=== PATIENT | male | born 1955 | race Caucasian/White ===

== ENCOUNTER 2021-04-30 19:50 | Inpatient (IN) | payer MEDICARE, SELFPAY ==
[2021-04-30] VITALS (20 sets, daily range): BP systolic 149–179; BP diastolic 74–106; PULSE 73–106; RESP 16–24; TEMP 36.6; O2SAT 92–100
--- NOTE | ~2021-04-30 | XR_ITS ---
EXAMINATION: XR chest 2V DATE: 04/30/2021 21:32 INDICATION: COPD and wheezing TECHNIQUE: AP and lateral views of the chest are obtained. COMPARISON: 11/05/2013 FINDINGS: Cardiomegaly is noted. A mild diffuse interstitial pattern is present. There appear to be s mall pleural effusions. No pneumothorax is identified. There has been interval insertion of a dual le ad pacemaker into the left chest wall which ends with its expected positions. IMPRESSION: 1. Cardiomegaly. 2. Diffuse lung disease, consistent with pulmonary edema and/or pneumonia. Reviewed, dictated and finalized at location A.
--- NOTE | ~2021-04-30 | XR_ITS ---
XR chest 1V portable DATE: 05/03/2021 05:42 INDICATION: Shortness of breath TECHNIQUE: Portable AP chest on 04/2021 at 0528 hours COMPARISON: 04/30/2021 portable AP chest at 2127 hours FINDINGS: Left-sided dual-lead pacemaker device is one lead overlying right atrium, the other lead be yond the lower margin of the radiograph, presumably in the right ventricle. Cardiomegaly. There is pulmonary vascular congestion and redistribution, prominence of the minor fissure and mild c entral and lower lung infiltrates, likely due to subpleural and pulmonary interstitial edema. Small p leural effusions are not excluded (costophrenic angles partially obscured). No pneumothorax. IMPRESSION: Congestive heart failure and probable subpleural and pulmonary interstitial edema. Pneumo monica is not excluded Reviewed, dictated and finalized at location A. IMPRESSION: Congestive heart failure and probable subpleural and pulmonary inte rstitial edema. Pneumonia is not excluded
--- NOTE | 2021-04-30 21:12 | ECG_ITS ---
Measurements Intervals [place] Rate: 90 P: MO: 0 QRS: -66 QRSD: 120 T: 68 QT: 398 QTc: 488 Interpretive Statements ATRIAL FIBRILLATION INTRAVENTRICULAR CONDUCTION DELAY LOW VOLTAGE- DIFFUSE LEADS ANTERIOR INFARCT, AGE INDETERMINATE BASELINE ARTIFACT- I, II, III, AVR, AVL, AVF, V3-V4 ABNORMAL ECG Electronically Signed On 05-01-2021 8:32:37 CDT by Aditya Milton D.O.
--- NOTE | 2021-04-30 21:19 | PC.NURSE ---
Patient taken to Xray.
--- NOTE | 2021-04-30 21:43 | ED.SOB ---
HPI - SOB/Dyspnea General Chief Complaint: Shortness of Breath/Dyspnea Stated Complaint: confusion Time Seen by Provider: 04/30/21 20:33 Source: patient Mode of arrival: EMS Limitations: clinical condition History of Present Illness HPI Narrative: 65-year-old male Patient is drowsy/lethargic and a poor historian Patient states that he fell asleep at the [employer] Unclear if he was actually in the store or if he was in the parking lot but either way somebody called paramedics and they brought him to the hospital He was noted to have poor O2 sats in the field Here he really does not have any particular complaints but does appear very drowsy Related Data Allergies Allergy/AdvReac Type Severity Reaction Status Date / Time No Known Allergies Allergy Unverified 11/05/13 12:33 Review of Systems Review of Systems: ROS unobtainable: Yes unobtainable due to mental status Constitutional: Constitutional: Denies fever(s) Gastrointestinal: Gastrointestinal: Denies vomiting PMFSH Comments Most is unobtainable due to lethargy Exam Const: General: cooperative and confusion Nutritional Appearance: obese Other: Lethargic, rousable HENMT: Head: normal to inspection, normocephalic, atraumatic, no contusions, no hematomas and no lacerations Ears: external ears normal Eyes: Conjunctivae: conjunctivae normal EOM: EOMs intact bilaterally Neck: Neck: normal visual inspection, supple and no JVD Resp: Effort & Inspection: normal respiratory effort Auscultation: no rales, no rhonchi, wheezes throughout and other (BS =) Cardio: Rhythm: abnormal rhythm irregularly irregular Heart sounds: no murmurs GI: GI Palp: Yes Soft to palpation, No Guarding due to palpation present (GI) and No Rebound tenderness present Skin: General skin exam: normal color and no rashes or lesions noted Neuro: General: moves all extremities and no focal motor deficits (Poor cooperation, grossly normal x4) Extrem: General: normal to inspection Other: Bilateral 1+ edema Course Course Emergency Course: Sparse data as the patient cannot provide much history and the only thing in the chart is a 6-year-old visit for reactive airways He has acute hypercapnic ventilatory respiratory failure based upon his ABG and was placed on BiPAP for this as well as receiving bronchodilators, empiric antibiotics, and a dose of Lasix due to his elevated BNP Seemed a little more alert when rechecked just before admission Discussed with hospitalist for admission and will be going to IMU Vital Signs Vital signs: Vital Signs Temperature 36.6 C 04/30/21 20:13 Pulse Rate 83 04/30/21 20:13 Respiratory Rate 20 04/30/21 20:13 Blood Pressure 149/74 H 04/30/21 20:13 Pulse Oximetry 95 04/30/21 20:13 Temperature 36.6 C 04/30/21 20:13 Pulse Rate 90 04/30/21 23:45 Respiratory Rate 20 04/30/21 23:45 Blood Pressure 160/106 H 04/30/21 23:01 Pulse Oximetry 98 04/30/21 23:45 MDM - SOB/Dyspnea Lab Data Result diagrams: 04/30/21 21:38 04/30/21 21:38 Labs: Lab Results 04/30/21 04/30/21 04/30/21 Range/Units 21:38 21:38 21:38 WBC 7.7 (4.5-10.0) K/mm3 RBC 4.14 L (4.6-6.20) M/mm3 Hgb 12.9 L (14.0-18.0) g/dL Hct 42.3 (42.0-52.0) % MCV 102.2 H (80-100) fl MCH 31.2 (26-34) pg MCHC 30.5 L (32-36) g/dl RDW 15.4 H (11.5-14.5) % Plt Count 209 (150-375) k/mm3 MPV 10.9 H (7.4-10.4) fl Immature Gran % (Auto) 0.8 H (0-0.5) % Neut % (Auto) 66.0 (45.5-73.1) % Lymph % (Auto) 21.4 (18.3-44.2) % Island % (Auto) 9.4 H (2.6-8.5) % Eos % (Auto) 1.7 (0-4.4) % Baso % (Auto) 0.7 (0.2-1.2) % Lymph # (Auto) 1.64 (0.9-3.2) K/mm3 Island # (Auto) 0.7 H (0.1-0.6) K/mm3 Eos # (Auto) 0.1 (0-0.3) K/mm3 Baso # (Auto) 0.1 (0.0-0.1) K/mm3 Abs Immat Gran (auto) 0.06 H (0.00-0.031) K/mm3 Absolute Neuts (auto) 5.1 (1.3-6.7) K/mm3 Absolu
[2021-04-30 21:46] LABS: Alveolar/Arterial O2 Gradient 59.4 mmHg; Fractional Inspired Oxygen 32 %; HCO3 ABG 32.2 mEq/l (22.0-26.0); Oxygen Content ABG 17.1 %vol (16.0-22.0); Oxygen Saturation ABG 91.5 % (95.0-100.0); Oxyhemoglobin 88.4 % THb (90.0-100.0); PO2 ABG 74.9 mmHg (80.0-100.0); PO2 FiO2 Ratio Arterial Blood 2.34 %; Total Hemoglobin 13.7 g/dL (12.0-18.0)
[2021-04-30 21:47] LABS: PCO2 ABG 80.2 mmHg (35.0-45.0); pH ABG 7.221 (7.350-7.450)
--- NOTE | 2021-04-30 21:47 | PC.NURSE ---
Patient given urinal to provide urine specimen.
[2021-04-30 21:48] LABS: Device NON-REBREATHER MASK; Modified Allen's Test Pass; Site Drawn LEFT RADIAL
[2021-04-30] MEDS: ALBUTEROL SULFATE NEB 2.5 MG/0.5 ML INH 5 MG INHALATION (21:49)
[2021-04-30] MEDS: IPRATROPIUM BR 0.02% INH SOLN 0.5 MG/2.5 ML VIAL INHALATION (21:50)
[2021-04-30 21:53] LABS: Basophils Absolute Auto 0.1 K/mm3 (0.0-0.1); Basophils Percent Auto 0.7 % (0.2-1.2); Eosinophils Absolute Auto 0.1 K/mm3 (0-0.3); Eosinophils Percent Auto 1.7 % (0-4.4); Hematocrit 42.3 % (42.0-52.0); Hemoglobin 12.9 g/dL (14.0-18.0); Immature Granulocyte Absolute 0.06 K/mm3 (0.00-0.031); Immature Granulocyte Percent A 0.8 % (0-0.5); Lymphocytes Absolute Auto 1.64 K/mm3 (0.9-3.2); Lymphocytes Percent Auto 21.4 % (18.3-44.2); Mean Corpuscular HGB Conc 30.5 g/dl (32-36); Mean Corpuscular Hemoglobin 31.2 pg (26-34); Mean Corpuscular Volume 102.2 fl (80-100); Mean Platelet Volume 10.9 fl (7.4-10.4); Monocytes Absolute Auto 0.7 K/mm3 (0.1-0.6); Monocytes Percent Auto 9.4 % (2.6-8.5); Neutrophils Absolute Auto 5.1 K/mm3 (1.3-6.7); Platelet Count Result 209 k/mm3 (150-375); Red Blood Count 4.14 M/mm3 (4.6-6.20); Red Cell Distribution Width 15.4 % (11.5-14.5); White Blood Count 7.7 K/mm3 (4.5-10.0)
[2021-04-30 22:06] LABS: Alanine Aminotransferase 19 U/L (4-50); Albumin Level 4.3 g/dL (3.5-5.1); Alkaline Phosphatase 79 U/L (38-126); Anion Gap 6 mmol/L (8-16); Aspartate Amino Transferase 23 U/L (17-59); Bilirubin,Total 0.7 mg/dL (0.2-1.3); Blood Urea Nitrogen 12 mg/dL (9-20); Calcium 8.6 mg/dL (8.4-10.2); Carbon Dioxide 34 mmol/L (22-30); Chloride 104 mmol/L (98-107); Estimated CRCL calculation 101 ml/min; Estimated Glomerular Filt Rate > 60; Glucose 180 mg/dL (65-110); Potassium 4.2 mmol/L (3.4-5.0); Sodium 144 mmol/L (137-145)
[2021-04-30 22:18] LABS: NT Pro B Type Natriuretic Pept 4690 pg/mL (5-100); Troponin I 0.021 ng/mL (0.000-0.034)
[2021-04-30 23:45] LABS: Free T4 Free Thyroxine Reflex 1.74 ng/dL (0.78-2.19)
--- NOTE | 2021-04-30 23:49 | PM.IMHP ---
H&P: HPI History of Present Illness Date/Time: 04/30/21 23:49 Chief Complaint: ALTERED MENTAL STATUS Narrative: This is a 65-year-old male who was brought to the emergency room via EMS his unable to give much history as his very drowsy currently on BiPAP apparently he was wondering outside at [employer] store when someone call paramedics on the field patient had an oxygen saturation in the 80%. Here upon arrival to emergency room patient was very drowsy preliminary workup was significant for a blood gas with a pH of 7.2 and a pCO2 of 80 a BNP above 4,000, chest x-ray was significant for diffuse infiltrates and pleural effusion there is also a pacemaker insitu. Patient was placed on BiPAP at the time of my visit I was unable to get any history which has been a obtain mainly upon review of medical records and emergency room doctor and paramedics records. Review of Systems Review of Systems: ROS unobtainable: Yes unobtainable due to medical condition and unobtainable due to mental status (Obtunded on BiPAP) Meds Home Medications and Allergies Allergies Allergy/AdvReac Type Severity Reaction Status Date / Time No Known Allergies Allergy Unverified 11/05/13 12:33 Vital Signs Vital Signs - 24 hr 04/30/21 20:13 04/30/21 20:36 04/30/21 20:39 Temperature 97.9 F Pulse Rate 83 91 88 Respiratory Rate 20 Blood Pressure 149/74 H 154/95 H Pulse Oximetry 95 97 04/30/21 20:41 04/30/21 20:45 04/30/21 21:00 Temperature Pulse Rate 95 84 86 Respiratory Rate 20 23 H 21 H Blood Pressure 154/95 H Pulse Oximetry 95 98 94 04/30/21 21:15 04/30/21 21:31 04/30/21 21:45 Temperature Pulse Rate 85 91 87 Respiratory Rate Blood Pressure Pulse Oximetry 98 95 95 04/30/21 22:00 04/30/21 22:01 04/30/21 22:15 Temperature Pulse Rate 73 91 99 Respiratory Rate 23 H 22 H Blood Pressure 179/89 H Pulse Oximetry 93 93 94 04/30/21 22:38 04/30/21 22:45 04/30/21 22:53 Temperature Pulse Rate 87 85 Respiratory Rate 19 24 H 16 Blood Pressure Pulse Oximetry 92 04/30/21 23:00 04/30/21 23:01 04/30/21 23:18 Temperature Pulse Rate 93 106 H 90 Respiratory Rate 23 H Blood Pressure 160/106 H Pulse Oximetry 100 04/30/21 23:30 04/30/21 23:45 Temperature Pulse Rate 105 H 90 Respiratory Rate 24 H 20 Blood Pressure Pulse Oximetry 98 98 Exam Narrative: Patient is in [facility] on Const: General: comfortable, no acute distress, well developed, ill appearing and patient obtunded Nutritional Appearance: overweight Orientation/consciousness: oriented to person Limitations: altered mental status HENMT: Head: normal to inspection, normocephalic and atraumatic Ears: hearing grossly normal bilaterally General nose exam: Normal external nose present Face and sinus: normal facial exam Eyes: General: appearance normal, both eyes and all related structures Alignment and Position: alignment normal Sclera: sclerae normal Pupils: Equal, round and reactive pupils present EOM: EOMs intact bilaterally Neck: Neck: normal visual inspection, full ROM, no lymphadenopathy, supple and no JVD Thyroid: thyroid normal Lymphatic: no lymphadenopathy noted Resp: Effort & Inspection: normal respiratory effort and other (On BiPAP) Auscultation: crackles, rales and diminished lung sounds Cardio: Jugular venous distension: no JVD Rate: regular rate Rhythm: regular rhythm Heart sounds: S1 normal heart sound present and S2 normal heart sound present GI: Inspection: Pannus present and obesity GI Palp: Yes Soft to palpation, No Tenderness to palpation present (GI), No Guarding due to palpation present (GI) and Yes No hepatosplenomegaly present : General: Yes deferred Skin: General skin exam: excoriation (Abdomen) Rashes: no rashes Wounds: no wounds Neuro: General: oriented to person and CN's II-XI intact bilaterally Cranial nerves: Yes CN's II-XII intact bilaterally and Yes Equal, round and reactive
[2021-05-01] VITALS (29 sets, daily range): BP systolic 111–169; BP diastolic 64–115; PULSE 69–114; RESP 17–29; TEMP 36.4–36.8; O2SAT 90–100; BMI 48.3; BMI 48.0
--- NOTE | 2021-05-01 | ECHO_ITS ---
Patient Info Name: Elder Garcia Age: 65 years : 1955 Gender: Male Ht: 70 in Wt: 311 lbs BSA: 2.71 m2 HR: 76 bpm BP: 150 / 102 mmHg Technical Quality: Poor Exam Date: 05/01/2021 10:11 AM Exam Location: [facility] Patient Status: Inpatient Admit Date: 05/01/2021 Staff Ordering Physician: Luis Jackson MD Book Illustrator: CHARLIE Attending Provider: Luis Jackson MD Referring Physician: Manuel MARAVILLA; Exam Type: CA echo dop color flow w con Study Info Indications - chf Complete two-dimensional, color flow and Doppler transthoracic echocardiogram is performed with contrast to opacify the left ventricle and to improve the deliniation of the left ventricle endocardial borders. Contrast/Agitated Saline Amount: 4.00 ml Reason for Poor Study: patient body habitus Summary 1. Technically suboptimal study due to poor sonographic images. 2. Definity contrast administered improved wall motion interpretation. 3. Left ventricular chamber dimension is severely enlarged. 4. Left ventricular systolic function is severely reduced, estimated at 20-25%. 5. The left ventricular diastolic function is indeterminate. 6. Linear artifact in right ventricle suggestive of catheter(s), pacemaker lead(s), or ICD lead(s). 7. Left atrial chamber dimension is moderately enlarged. 8. Right atrial chamber dimension is moderately enlarged. 9. Linear artifact in the right atrium suggestive of catheter(s), pacemaker lead(s), or ICD lead(s). 10. There is mild to moderate tricuspid valve regurgitation. 11. Mild pulmonary hypertension, estimated pulmonary arterial systolic pressure is 40 mmHg. 12. Normal inferior vena cava with <50% collapse upon inspiration consistent with elevated right atrial pressure, 10 mmHg. 13. There is trivial pericardial effusion. Left Ventricle Technically suboptimal study due to poor sonographic images. Tissue doppler E/e' is not measured. Definity contrast administered improved wall motion interpretation. Left ventricular chamber dimension is severely enlarged. Left ventricular systolic function is severely reduced, estimated at 20-25%. The left ventricular diastolic function is indeterminate. Right Ventricle Linear artifact in right ventricle suggestive of catheter(s), pacemaker lead(s), or ICD lead(s). Right ventricular chamber dimension is not well visualized. Left Atria Left atrial chamber dimension is moderately enlarged. Right Atria Linear artifact in the right atrium suggestive of catheter(s), pacemaker lead(s), or ICD lead(s). Right atrial chamber dimension is moderately enlarged. Aortic Valve The aortic valve is trileaflet. There is no aortic valve stenosis. There is no aortic valve regurgitation. Pulmonic Valve There is no pulmonic regurgitation. Mitral Valve There is no mitral valve stenosis. There is no mitral valve regurgitation. Tricuspid Valve There is mild to moderate tricuspid valve regurgitation. Mild pulmonary hypertension, estimated pulmonary arterial systolic pressure is 40 mmHg. Pericardium/Pleural There is trivial pericardial effusion. Inferior Vena Cava Normal inferior vena cava with <50% collapse upon inspiration consistent with elevated right atrial pressure, 10 mmHg. Aorta The aortic root size at the sinus of Valsalva is normal. Left Ventricular Outflow Tract Name
[2021-05-01 00:05] LABS: Lactate Dehydrogenase 816 U/L (313-618)
[2021-05-01] MEDS: ALBUTEROL SULFATE NEB 2.5 MG/0.5 ML INH 5 MG INHALATION ×3 (00:24→08:50)
[2021-05-01 00:41] LABS: Total Triiodothyronine (T3) 0.97 NG/ML (0.97-1.69)
[2021-05-01] MEDS: FUROSEMIDE INJ 40 MG/4 ML VIAL IV PUSH ×2 (00:48→21:14)
[2021-05-01] MEDS: IPRATROPIUM BR 0.02% INH SOLN 0.5 MG/2.5 ML VIAL INHALATION ×4 (02:30→19:47)
[2021-05-01] MEDS: LORazepam INJ (*CRX) 2 MG/ML VIAL (04:47)
[2021-05-01] MEDS: LACTATED RINGERS 1,000 ML 50 ML IV CONT (04:50)
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
--- NOTE | 2021-05-01 05:31 | PC.NURSE ---
unable to ask admit questions due to being given ativan for aggressive and restless behavior. Under care of ER nurse.
[2021-05-01 12:28] LABS: Alveolar/Arterial O2 Gradient 129.8 mmHg; Base Excess ABG 2.1 mEq/l (+/-2.0); Carboxyhemoglobin 1.4 % THb (0-2.0); Fractional Inspired Oxygen 40 %; HCO3 ABG 30.8 mEq/l (22.0-26.0); Methemoglobin ABG 0.3 %THb (0-1.5); Oxygen Content ABG 17.6 %vol (16.0-22.0); Oxygen Saturation ABG 93.3 % (95.0-100.0); Oxyhemoglobin 92.7 % THb (90.0-100.0); PO2 ABG 77.2 mmHg (80.0-100.0); PO2 FiO2 Ratio Arterial Blood 1.93 %; Reduced Hemoglobin 5.6 %THb (0-5.0); Total Hemoglobin 13.5 g/dL (12.0-18.0)
[2021-05-01 12:31] LABS: pH ABG 7.274 (7.350-7.450)
[2021-05-01 12:32] LABS: Device NON-INVASIVE VENT; Site Drawn LEFT BRACHIAL
[2021-05-01 12:33] LABS: Non-Invasive Expiratory Pressure 6 CMH2O; Non-Invasive Inspiratory Pressure 18 CMH2O; Non-Invasive Vent Rate 16 /MIN
--- NOTE | 2021-05-01 13:00 | PM.IMPN ---
Progress Note: A&P Assessment and Plan (1) Acute hypercapnic respiratory failure: Code(s): J96.02 - Acute respiratory failure with hypercapnia Status: Acute Assessment and Plan: He was on BiPAP with IPAP of 16/EPAP of 6/respiratory rate of 16 and 40% FiO2. A follow-up blood gas was performed which showed improvement in his pCO2 which is down to 60s with his pH remained 7.27. I will switch his BiPAP to AVAPS settings and repeat a blood gas in few hours for now. He was sleepy at the time of my evaluation. It appears that he was very restless throughout the night and was given 1 mg of Ativan today in the morning in the emergency department. If he continued to be very lethargic/obtunded or blood gas does not improve appropriately then he would need to be transferred to ICU for intubation and mechanical ventilation. Continue to keep him NPO while he is on BiPAP. Will continue him on bronchodilator with albuterol/Atrovent nebulization. (2) Infiltrate of lung present on chest x-ray: Code(s): R91.8 - Other nonspecific abnormal finding of lung field Status: Acute Assessment and Plan: Patient has been started on azithromycin and ceftriaxone Follow-up blood culture. Send sputum culture if he is able to produce any. Check procalcitonin level. COVID test is pending. (3) Afib: Code(s): I48.91 - Unspecified atrial fibrillation Status: Acute Assessment and Plan: Continue to monitor (4) Acute congestive heart failure: Code(s): I50.9 - Heart failure, unspecified Status: Acute Assessment and Plan: Echocardiogram has been done in the emergency department with pending read from cardiology service. Start him on Lasix 40 mg IV twice a day. Strict intake output record and daily weight. Continue to monitor renal parameters and electrolytes. (5) Pacemaker: Code(s): Z95.0 - Presence of cardiac pacemaker Status: Acute Assessment and Plan: Presence of pacemaker on chest x-ray (6) Altered mental status: Code(s): R41.82 - Altered mental status, unspecified Status: Acute Assessment and Plan: Likely secondary to hypercarbia. If his mental status does not improve with correction of acute hypercarbic respiratory failure then he may need further workup including a CT of the brain to rule out any acute intracranial pathology. Supportive care (7) COPD exacerbation: Code(s): J44.1 - Chronic obstructive pulmonary disease with (acute) exacerbation Status: Acute Assessment and Plan: I will stop prednisone. I will start him on Solu-Medrol. I will continue him on bronchodilator with the GiorgiooNeisra. Wheezing can be related to fluid overload and will reassess and potentially stop steroids if he does not have any significant wheezing. (8) COVID-19: Code(s): U07.1 - COVID-19 Status: Acute Assessment and Plan: COVID-19 test is pending. Continue precaution until he is ruled out of COVID 19 infection. Subjective Date/time seen: 05/01/21 13:00 Review of Systems Review of Systems: ROS unobtainable: Yes unobtainable due to medical condition and unobtainable due to mental status (Obtunded on BiPAP) Exam Narrative: General sleepy while he was on BiPAP Eyes normal conjunctiva HEENT no discharge Neck supple CVS S1-S2 no murmur Respiratory Bilateral crackles heard few occasional rhonchi and wheezing heard as well. GI soft nontender nondistended JAVA SDET sleepy Extremities edema present Objective Data Vital Signs Vital Signs: Vital Signs - 24 hr 04/30/21 20:13 04/30/21 20:36 04/30/21 20:39 Temperature 36.6 C Pulse Rate 83 91 88 Respiratory Rate 20 Blood Pressure 149/74 H 154/95 H Pulse Oximetry 95 97 04/30/21 20:41 04/30/21 20:45 04/30/21 21:00 Temperature Pulse Rate 95 84 86 Respiratory Rate 20 23 H 21 H Blood Pressure 154/95 H Pulse Oximetry 95 98 94 1
[2021-05-01] MEDS: ALBUTEROL SULFATE NEB 2.5 MG/0.5 ML INH INHALATION ×2 (14:05→19:47)
[2021-05-01 15:47] LABS: Alveolar/Arterial O2 Gradient 68.8 mmHg; Base Excess ABG 4.7 mEq/l (+/-2.0); Carboxyhemoglobin 0.8 % THb (0-2.0); Fractional Inspired Oxygen 30 %; HCO3 ABG 33.1 mEq/l (22.0-26.0); Methemoglobin ABG 0.3 %THb (0-1.5); Oxygen Content ABG 17.4 %vol (16.0-22.0); Oxygen Saturation ABG 90.1 % (95.0-100.0); Oxyhemoglobin 90.7 % THb (90.0-100.0); PO2 ABG 65.1 mmHg (80.0-100.0); PO2 FiO2 Ratio Arterial Blood 2.17 %; Reduced Hemoglobin 8.2 %THb (0-5.0); Total Hemoglobin 13.6 g/dL (12.0-18.0); pH ABG 7.305 (7.350-7.450)
[2021-05-01 15:48] LABS: Modified Allen's Test Unable to perform; Non-Invasive Vent Rate 18 /MIN; PCO2 ABG 68.1 mmHg (35.0-45.0); Site Drawn LEFT RADIAL
[2021-05-01 15:49] LABS: Device NON-INVASIVE VENT; Non-Invasive Expiratory Pressure 10 CMH2O
--- NOTE | 2021-05-01 16:36 | PC.NURSE ---
This patient, Elder Garcia, was admitted to IMU Room 207-01. Patient/family oriented to hospital policies and general routines including ID bracelet, bed and alarms, visiting hours, pain management, procedures, bathroom and other care routines, personal items, smoking policy, room service/diet, and visiting hours. Information on how to activate the Rapid Response Team has been discussed. Patient/Family are encouraged to report perceived risks to care and to ask questions if they do not understand what they are told or what they should do.
[2021-05-01] MEDS: methylPREDNISolone SOD SUCC 125 MG VIAL 60 MG IV PUSH ×2 (16:48→21:14)
[2021-05-01 19:34] LABS: SARS-CoV-2 RNA PCR Negative
[2021-05-01 21:22] LABS: Glucose Point of Care 210 mg/dl (65-105)
[2021-05-01 21:48] LABS: Amphetamine Screen Urine Negative (Negative); Barbiturate Screen Urine Negative (Negative); Benzodiazepines Screen Urine Negative (Negative); Cannabinoid Screen Urine Negative (Negative); Cocaine Screen Urine Negative (Negative); Methadone Screen Urine Negative (Negative); Opiate Screen Urine Negative (Negative); Phencyclidine Screen Urine Negative (Negative)
[2021-05-02] VITALS (28 sets, daily range): BP systolic 130–161; BP diastolic 75–87; PULSE 69–103; RESP 19–27; TEMP 35.8–36.6; O2SAT 90–98
[2021-05-02] MEDS: ALBUTEROL SULFATE NEB 2.5 MG/0.5 ML INH INHALATION ×4 (01:54→19:41)
[2021-05-02] MEDS: IPRATROPIUM BR 0.02% INH SOLN 0.5 MG/2.5 ML VIAL INHALATION ×4 (01:54→19:41)
[2021-05-02] MEDS: methylPREDNISolone SOD SUCC 125 MG VIAL 60 MG IV PUSH (05:19)
[2021-05-02 05:39] LABS: Alveolar/Arterial O2 Gradient 238.7 mmHg; Base Excess ABG 5.7 mEq/l (+/-2.0); Fractional Inspired Oxygen 50 %; HCO3 ABG 31.7 mEq/l (22.0-26.0); Oxygen Content ABG 17.6 %vol (16.0-22.0); Oxygen Saturation ABG 90.5 % (95.0-100.0); Oxyhemoglobin 90.1 % THb (90.0-100.0); PCO2 ABG 51.8 mmHg (35.0-45.0); PO2 ABG 59.5 mmHg (80.0-100.0); PO2 FiO2 Ratio Arterial Blood 1.19 %; Total Hemoglobin 13.9 g/dL (12.0-18.0); pH ABG 7.405 (7.350-7.450)
[2021-05-02 05:40] LABS: Device NON-INVASIVE VENT; Modified Allen's Test Pass; Non-Invasive Vent Rate 18 /MIN; Site Drawn LEFT RADIAL
[2021-05-02 06:40] LABS: Hematocrit 41.8 % (42.0-52.0); Hemoglobin 12.8 g/dL (14.0-18.0); Immature Granulocyte Absolute 0.04 K/mm3 (0.00-0.031); Immature Granulocyte Percent A 0.6 % (0-0.5); Lymphocytes Absolute Auto 0.64 K/mm3 (0.9-3.2); Mean Corpuscular HGB Conc 30.6 g/dl (32-36); Mean Corpuscular Hemoglobin 30.3 pg (26-34); Mean Corpuscular Volume 99.1 fl (80-100); Mean Platelet Volume 11.4 fl (7.4-10.4); Monocytes Absolute Auto 0.2 K/mm3 (0.1-0.6); Monocytes Percent Auto 2.8 % (2.6-8.5); Neutrophils Absolute Auto 5.6 K/mm3 (1.3-6.7); Neutrophils Percent Auto 86.6 % (45.5-73.1); Platelet Count Result 212 k/mm3 (150-375); Red Blood Count 4.22 M/mm3 (4.6-6.20); Red Cell Distribution Width 14.7 % (11.5-14.5); White Blood Count 6.4 K/mm3 (4.5-10.0)
[2021-05-02 06:55] LABS: Anion Gap 5 mmol/L (8-16); Blood Urea Nitrogen 23 mg/dL (9-20); Calcium 8.4 mg/dL (8.4-10.2); Carbon Dioxide 34 mmol/L (22-30); Chloride 101 mmol/L (98-107); Estimated CRCL calculation 105 ml/min; Estimated Glomerular Filt Rate > 60; Glucose 322 mg/dL (65-110); Magnesium 2.2 mg/dL (1.6-2.3); Potassium 4.6 mmol/L (3.4-5.0); Sodium 140 mmol/L (137-145)
[2021-05-02] MEDS: ALBUTEROL SULFATE (*SP) INHALER 1 PUFF (08:29)
[2021-05-02] MEDS: AMIODARONE HCL 200 MG TABLET PO ×2 (08:43→17:55)
[2021-05-02 08:45] LABS: Glucose Point of Care 274 mg/dl (65-105)
[2021-05-02] MEDS: INSULIN ASPART (*BKC) 100 UNITS/ML SUB-Q ×3 (09:34→17:54)
[2021-05-02] MEDS: ATORVASTATIN 40 MG TABLET 80 MG PO (09:36)
[2021-05-02] MEDS: FUROSEMIDE INJ 100 MG/10 ML VIAL 80 MG IV PUSH ×2 (09:37→21:05)
[2021-05-02 10:28] LABS: INR 1.1; Prothrombin Time 13.8 Seconds (11.1-14.7)
[2021-05-02 13:06] LABS: Glucose Point of Care 314 mg/dl (65-105)
[2021-05-02] MEDS: ALBUTEROL SULFATE (*SP) AEROSOL 1 PUFF 2 PUFF INHALATION (14:23)
--- NOTE | 2021-05-02 14:32 | PM.IMPN ---
Progress Note: A&P Assessment and Plan (1) Acute hypercapnic respiratory failure: Code(s): J96.02 - Acute respiratory failure with hypercapnia Status: Acute Assessment and Plan: He was on BiPAP with IPAP of 16/EPAP of 6/respiratory rate of 16 and 40% FiO2 at the time of presentation. His BiPAP settings were switched to AVAPS settings with improvement in his acid-base balance along with mental status. He was taken off BiPAP today in the morning and seems to be tolerating oxygen through nasal cannula. Will continue BiPAP at nighttime and on a as needed basis for increased work of breathing. He was on 5 L of oxygen through nasal cannula which was weaned down to 3 L at the bedside. In baseline he is on room air and does not use oxygen at home Will continue him on bronchodilator with albuterol/Atrovent nebulization. (2) Infiltrate of lung present on chest x-ray: Code(s): R91.8 - Other nonspecific abnormal finding of lung field Status: Acute Assessment and Plan: Patient has been started on azithromycin and ceftriaxone. I will stop antibiotics is I do not feel that his symptoms are related to any infectious etiology. Repeat chest x-ray has been ordered for tomorrow. Follow-up blood culture. Send sputum culture if he is able to produce any. Procalcitonin level is pending. COVID test came back negative. Precautions have been discontinued. (3) Afib: Code(s): I48.91 - Unspecified atrial fibrillation Status: Acute Assessment and Plan: Continue to monitor Continue amiodarone. Continue warfarin. Continue to monitor INR. (4) Acute congestive heart failure: Code(s): I50.9 - Heart failure, unspecified Status: Acute Assessment and Plan: Echocardiogram showed ejection fraction of 20 to 25%. Mild pulmonary hypertension with estimated pulmonary artery pressure of 40. Moderate tricuspid wall regurgitation. No prior echo to compare with. Will increase the dose of Lasix to 60 mg IV twice a day. Strict intake output record and daily weight. Continue to monitor renal parameters and electrolytes. His symptoms started after his Lasix was stopped by his physician 2 weeks ago for issues with his kidney functions. Cardiology has been consulted with pending recommendations. I will start him on carvedilol. His blood pressure has been noticed to be on the higher side. (5) Pacemaker: Code(s): Z95.0 - Presence of cardiac pacemaker Status: Acute Assessment and Plan: Presence of pacemaker on chest x-ray and on echocardiogram (6) Altered mental status: Code(s): R41.82 - Altered mental status, unspecified Status: Acute Assessment and Plan: Likely secondary to hypercarbia. His mental status improved with resolution of his hypercarbic respiratory failure. Supportive care. Drug screen was negative. (7) COPD exacerbation: Code(s): J44.1 - Chronic obstructive pulmonary disease with (acute) exacerbation Status: Acute Assessment and Plan: Continue Solu-Medrol. Wean Solu-Medrol based on his respiratory status. He is still having significant wheezing. I will continue him on bronchodilator with the DuoNebs. Wheezing can be related to fluid overload and will reassess and potentially stop steroids if he does not have any significant wheezing in the next 1-2 days. (8) COVID-19: Code(s): U07.1 - COVID-19 Status: Acute Assessment and Plan: COVID-19 test came back negative. Precautions have been discontinued. Subjective Date/time seen: 05/02/21 14:32 He was taken off BiPAP today and was on oxygen supplementation with 5 L which was weaned down to 3 L at the bedside. He is feeling much better now. He thinks that his symptom of shortness of breath has improved significantly. He is complaining of shortness of breath for the last 4-5 days and was using his albuterol inhaler more often. He
[2021-05-02] MEDS: SPIRONOLACTONE 25 MG TABLET PO (14:51)
[2021-05-02] MEDS: methylPREDNISolone SOD SUCC 40 MG VIAL 60 MG IV PUSH ×2 (14:51→21:06)
--- NOTE | 2021-05-02 16:50 | PM.CNCAR ---
Assessment and Plan Assessment and plan (1) Acute on chronic systolic CHF (congestive heart failure): Code(s): I50.23 - Acute on chronic systolic (congestive) heart failure Status: Acute Assessment and Plan: Patient presents with acute on chronic CHF, improving with diuresis. Entresto, spironolactone, and furosemide were discontinued in February because of dehydration and acute kidney injury. Explained to the patient that we will need to restart the furosemide but is renal function is good. His usual linux network administrator, Dr. Suarez, can continue to follow it as an outpatient. Continue IV Lasix. Daily BMP. Follow up with his usual linux network administrator on discharge for long-term management of CHF and cardiomyopathy. (2) Acute hypercapnic respiratory failure: Code(s): J96.02 - Acute respiratory failure with hypercapnia Status: Acute Assessment and Plan: Acute on chronic respiratory failure secondary to CHF, COPD exacerbation, and probably a degree of chronic hypercarbia related to his morbid obesity and sleep apnea. Supported with BiPAP for the 1st couple of days this admission. Now on nasal cannula O2. (3) Ischemic cardiomyopathy: Code(s): I25.5 - Ischemic cardiomyopathy Status: Acute Assessment and Plan: History of ischemic cardiomyopathy EF 40% in October. (4) CAD (coronary artery disease): Code(s): I25.10 - Atherosclerotic heart disease of [place] coronary artery without angina pectoris Status: Acute Assessment and Plan: RCA and circumflex stents were patent by catheterization in June 2020. No angina or ischemic EKG changes. (5) Afib: Code(s): I48.91 - Unspecified atrial fibrillation Status: Acute Assessment and Plan: Unclear if persistent or paroxysmal but the patient is in AFib now. Takes amiodarone. Rate is controlled. (6) Chronic anticoagulation: Code(s): Z79.01 - terminal superintendent (current) use of anticoagulants Status: Acute Assessment and Plan: Patient is chronically anticoagulated with warfarin. He tells me his usual dose is 5 mg daily except for 6 mg on Mondays and Fridays. (I suspected is actually 7 mg on Mondays and Fridays. ) He states he is compliant with medications and has not run out of anything. INR is 1.1 today. Warfarin has been resumed. (7) ICD (implantable cardioverter-defibrillator) in place: Code(s): Z95.810 - Presence of automatic (implantable) cardiac defibrillator Status: Acute Assessment and Plan: Has an ICD in place. Followed by Dr. Suarez. (8) Asthma: Code(s): J45.909 - Unspecified asthma, uncomplicated Status: Acute (9) Tobacco use: Code(s): Z72.0 - Tobacco use Status: Acute (10) Hypertension: Code(s): I10 - Essential (primary) hypertension Status: Acute Assessment and Plan: Not at goal. (11) LESLIE (obstructive sleep apnea): Code(s): G47.33 - Obstructive sleep apnea (adult) (pediatric) Status: Acute Assessment and Plan: Intolerant of CPAP. History of Present Illness History of Present Illness Consult date/time: 05/02/21 16:50 Requesting physician: Erika Kc MD Consult reason: congestive heart failure Reason For Visit: acute hypercapnic respiratory failure, atrial fibr Narrative: Mr. Elder Garcia is a 65-year-old male whom I was asked to see at the request of the hospitalist for my advice and opinion regarding his CHF and cardiomyopathy, in consultation. Mr. Garcia apparently was wandering around the [employer] parking lot confused and brought to the emergency room where he was found have acute respiratory failure with hypercarbia, pCO2 and O2 sat both 80, atrial fibrillation, and acute congestive heart failure. He has been treated with BiPAP and diuretics and has been changed to ox
[2021-05-02 17:18] LABS: Glucose Point of Care 272 mg/dl (65-105)
[2021-05-02] MEDS: WARFARIN (*PBKC) 5 MG TABLET PO (17:54)
[2021-05-02 20:13] LABS: Glucose Point of Care 272 mg/dl (65-105)
[2021-05-02] MEDS: carvediloL 3.125 MG TABLET PO (21:06)
[2021-05-03] VITALS (29 sets, daily range): BP systolic 138–163; BP diastolic 70–95; PULSE 59–92; RESP 18–26; TEMP 36.3–36.9; O2SAT 90–98
[2021-05-03] MEDS: ALBUTEROL SULFATE NEB 2.5 MG/0.5 ML INH INHALATION ×4 (01:52→20:17)
[2021-05-03] MEDS: IPRATROPIUM BR 0.02% INH SOLN 0.5 MG/2.5 ML VIAL INHALATION ×4 (01:52→20:17)
[2021-05-03 05:05] LABS: Hemoglobin 12.6 g/dL (14.0-18.0); Immature Granulocyte Absolute 0.04 K/mm3 (0.00-0.031); Immature Granulocyte Percent A 0.4 % (0-0.5); Lymphocytes Absolute Auto 0.49 K/mm3 (0.9-3.2); Lymphocytes Percent Auto 5.4 % (18.3-44.2); Mean Corpuscular HGB Conc 31.5 g/dl (32-36); Mean Corpuscular Hemoglobin 30.7 pg (26-34); Mean Corpuscular Volume 97.6 fl (80-100); Mean Platelet Volume 11.2 fl (7.4-10.4); Monocytes Absolute Auto 0.4 K/mm3 (0.1-0.6); Monocytes Percent Auto 4.1 % (2.6-8.5); Neutrophils Absolute Auto 8.1 K/mm3 (1.3-6.7); Neutrophils Percent Auto 90.1 % (45.5-73.1); Platelet Count Result 198 k/mm3 (150-375); Red Cell Distribution Width 14.6 % (11.5-14.5)
[2021-05-03 05:18] LABS: INR 1.1
[2021-05-03 05:22] LABS: Anion Gap 4 mmol/L (8-16); Blood Urea Nitrogen 31 mg/dL (9-20); Calcium 8.5 mg/dL (8.4-10.2); Carbon Dioxide 38 mmol/L (22-30); Chloride 97 mmol/L (98-107); Estimated CRCL calculation 95 ml/min; Estimated Glomerular Filt Rate > 60; Glucose 301 mg/dL (65-110); Magnesium 2.2 mg/dL (1.6-2.3); Potassium 4.6 mmol/L (3.4-5.0); Sodium 139 mmol/L (137-145)
[2021-05-03] MEDS: methylPREDNISolone SOD SUCC 40 MG VIAL 60 MG IV PUSH ×3 (06:08→19:51)
[2021-05-03 09:12] LABS: Glucose Point of Care 275 mg/dl (65-105)
[2021-05-03] MEDS: ATORVASTATIN 40 MG TABLET 80 MG PO (09:13)
[2021-05-03] MEDS: SPIRONOLACTONE 25 MG TABLET PO (09:13)
[2021-05-03] MEDS: INSULIN ASPART (*BKC) 100 UNITS/ML SUB-Q ×3 (09:14→17:44)
[2021-05-03] MEDS: FUROSEMIDE INJ 100 MG/10 ML VIAL 80 MG IV PUSH (09:14)
[2021-05-03] MEDS: AMIODARONE HCL 200 MG TABLET PO ×2 (09:14→17:43)
[2021-05-03] MEDS: carvediloL 3.125 MG TABLET PO (09:15)
--- NOTE | 2021-05-03 09:48 | PM.IMPN ---
Progress Note: A&P Additional Plan START OF DOCTOR KRYSTIAN?S PROGRESS NOTE Subjective: The patient currently rates his respiratory status is a 9/10 with 10 is baseline. He indicates that his bike pedal edema has improved. Overnight he denies fever, rigors, nausea, vomiting, cough, wheeze, abdominal pain, chest pain, or any other concerns complaints. I explained to the patient his current medical condition plan of care and answered all his questions Objective: General: -Alert -No acute distress -No dyspnea -No tachypnea -obese Heart: -Regular rate -Regular rhythm -No murmurs -No gallops -No rubs Lungs: -No wheeze -No rhonchi -No rales -trace bibasilar rales Abdomen: -Normal bowel sounds in all four quadrants -No rebound -No guarding -No tenderness Extremities: -2/4 pulse in all four extremities -No clubbing -No cyanosis -bilateral lower extremity edema to release these Additional Details / Additional Findings / Exceptions / Miscellaneous: Pertinent Laboratory Results / Pertinent Radiology Results / Pertinent Diagnostic Results / Pertinent Vital Signs: Blood pressure 163/95, heart rate 92, respirations 22, hemoglobin 12.6 Assessment / Plan: Dyspnea secondary to COPD exacerbation versus CHF exacerbation CHF, ejection fraction 20-25%, status post pacemaker/AICD placement. IV Lasix drip at 10 milligrams/hour plus Coreg 12.5 mg p.o. b.i.d. plus Aldactone 25 mg p.o.. Daily weight. Strict I/O. COPD, non O2 dependent. DuoNeb nebulized q.6 hours +Medrol 60 mg IV q.8 hours Obstructive sleep apnea. Patient CPAP/BiPAP intolerant Atrial fibrillation, status post AICD/pacemaker placement. Coreg 12.5 mg mg p.o. b.i.d. plus amiodarone 200 mg p.o. b.i.d. plus Coumadin p.o.:. Will check daily PT/INR Coronary artery disease. Lipitor 80 mg p.o. q.h.s. plus Coreg 12.5 mg p.o. b.i.d. Smoker. Patient counseled regarding smoking cessation Hypertension. Coreg 12.5 mg p.o. b.i.d. plus Aldactone 25 mg p.o. daily plus IV Lasix drip at 10 milligrams/hour Anemia. Monitor hemoglobin low intermittently. Ferritin within normal limits. Check iron panel and fecal occult blood Obesity. Patient counseled regarding lifestyle modification Hyperglycemia, query diabetes. This may be steroid induced hyperglycemia. Will check fingerstick glucose q.a.c. and HS and provide insulin sliding scale GI prophylaxis. Protonix 40 mg p.o. daily DVT prophylaxis. Coumadin. Will check daily PT/INR Disposition: Anticipate discharge within 48-72 hours depending on patient's rate of diuresis END OF DOCTOR KRYSTIAN?S PROGRESS NOTE Subjective Date/time seen: 05/03/21 09:49 Objective Data Vital Signs Vital Signs: Vital Signs - 24 hr 05/02/21 10:00 05/02/21 12:00 05/02/21 13:13 Temperature 97.4 F L Pulse Rate 92 94 82 Respiratory Rate 22 H Blood Pressure 153/79 H Pulse Oximetry 93 94 05/02/21 14:34 05/02/21 16:00 05/02/21 17:00 Temperature Pulse Rate 90 89 Respiratory Rate 22 H Blood Pressure Pulse Oximetry 98 98 05/02/21 17:26 05/02/21 17:55 05/02/21 18:00 Temperature 96.8 F L Pulse Rate 84 82 94 Respiratory Rate 26 H Blood Pressure 159/75 H Pulse Oximetry 92 05/02/21 19:32 05/02/21 19:45 05/02/21 19:53 Temperature 96.5 F L Pulse Rate 93 88 84 Respiratory Rate 26 H 26 H 22 H Blood Pressure 161/76 H Pulse Oximetry 95 94 94 05/02/21 20:00 05/02/21 21:06 05/02/21 21:20 Temperature Pulse Rate 96 82 90 Respiratory Rate 22 H Blood Pressure Pulse Oximetry 93 05/02/21 22:20 05/02/21 23:01 05/03/21 01:52 Temperature 97.6 F Pulse Rate 81 94 69 Respiratory Rate 27 H 22 H 24 H Blood Pressure 156/87 H Pulse Oximetry 98 94 05/03/21 02:00 05/03/21 02:01 05/03/21 03:23 Temperature Pulse Rate 78 74 78 Respiratory Rate 22 H 22 H Blood Pressure Pulse Oximetry 94 05/03/21 03:25 05/03/21 06:00 05/03/21
[2021-05-03 10:04] LABS: Iron 48 ug/dL (49-181)
[2021-05-03 10:13] LABS: Percent Iron Saturation 19 % (20-50)
[2021-05-03 10:17] LABS: Hemoglobin A1C 8.8 % (<5.7)
[2021-05-03] MEDS: carvediloL 12.5 MG TABLET PO ×2 (10:50→19:50)
[2021-05-03] MEDS: PANTOPRAZOLE 40 MG TABLET PO (10:50)
[2021-05-03] MEDS: FUROSEMIDE INJ 100 MG in SODIUM CHLORIDE 0.9% IV 90 ML 10 MG IV CONT ×2 (10:51→19:51)
--- NOTE | 2021-05-03 11:16 | PM.PNCARD ---
Progress Note: A&P Assessment and Plan (1) Acute on chronic systolic CHF (congestive heart failure): Code(s): I50.23 - Acute on chronic systolic (congestive) heart failure Status: Acute Assessment and Plan: Patient presents with acute on chronic CHF, improving with diuresis. Entresto, spironolactone, and furosemide were discontinued in February because of dehydration and acute kidney injury. Explained to the patient that we will need to restart the furosemide but is renal function is good. His usual assurance auditor, Dr. Suarez, can continue to follow it as an outpatient. Started on a Lasix drip today. Transition back to IV push diuretics tomorrow Daily BMP. Follow up with his usual assurance auditor on discharge for long-term management of CHF and cardiomyopathy. (2) Acute hypercapnic respiratory failure: Code(s): J96.02 - Acute respiratory failure with hypercapnia Status: Acute Assessment and Plan: Acute on chronic respiratory failure secondary to CHF, COPD exacerbation, and probably a degree of chronic hypercarbia related to his morbid obesity and sleep apnea. Supported with BiPAP for the 1st couple of days this admission. Now on nasal cannula O2. (3) Ischemic cardiomyopathy: Code(s): I25.5 - Ischemic cardiomyopathy Status: Acute Assessment and Plan: History of ischemic cardiomyopathy EF 40% in October. (4) CAD (coronary artery disease): Code(s): I25.10 - Atherosclerotic heart disease of [place] coronary artery without angina pectoris Status: Acute Assessment and Plan: RCA and circumflex stents were patent by catheterization in June 2020. No angina or ischemic EKG changes. (5) Afib: Code(s): I48.91 - Unspecified atrial fibrillation Status: Acute Assessment and Plan: Unclear if persistent or paroxysmal but the patient is in AFib now. Takes amiodarone. Rate is controlled. (6) Chronic anticoagulation: Code(s): Z79.01 - skilled nursing (current) use of anticoagulants Status: Acute Assessment and Plan: Patient is chronically anticoagulated with warfarin. He tells me his usual dose is 5 mg daily except for 6 mg on Mondays and Fridays. (I suspected is actually 7 mg on Mondays and Fridays. ) He states he is compliant with medications and has not run out of anything. INR is 1.1 today. Warfarin has been resumed. (7) ICD (implantable cardioverter-defibrillator) in place: Code(s): Z95.810 - Presence of automatic (implantable) cardiac defibrillator Status: Acute Assessment and Plan: Has an ICD in place. Followed by Dr. Suarez. (8) Asthma: Code(s): J45.909 - Unspecified asthma, uncomplicated Status: Acute (9) Tobacco use: Code(s): Z72.0 - Tobacco use Status: Acute (10) Hypertension: Code(s): I10 - Essential (primary) hypertension Status: Acute Assessment and Plan: Not at goal. (11) LESLIE (obstructive sleep apnea): Code(s): G47.33 - Obstructive sleep apnea (adult) (pediatric) Status: Acute Assessment and Plan: Intolerant of CPAP. Subjective Date/time seen: 05/03/21 11:16 Interval history: 65-year-old admitted for CHF. Date of service 05/03/2021: Continues to diurese. Legs are less swollen. He is not short of breath at rest. No chest pain. Review of Systems Constitutional: Constitutional: Reports fatigue and Reports weakness ENT: Denies epistaxis Cardiovascular: Cardiovascular: Denies chest pain, Reports pedal edema, Reports leg edema, Denies lightheadedness, Reports dyspnea and Reports dyspnea on exertion Respiratory: Respiratory: Reports chest congestion, Reports cough, Reports dyspnea, Reports dyspnea on exertion and Reports wheezing Gastrointestinal: Gastrointestinal: Denies abdominal pain Genitourinar
[2021-05-03 12:26] LABS: Glucose Point of Care 382 mg/dl (65-105)
[2021-05-03 17:23] LABS: Glucose Point of Care 343 mg/dl (65-105)
[2021-05-03] MEDS: WARFARIN (*PBKC) 5 MG TABLET PO (17:43)
[2021-05-03] MEDS: WARFARIN (*PBKC) 2 MG TABLET PO (17:43)
[2021-05-03 20:33] LABS: Glucose Point of Care 304 mg/dl (65-105)
[2021-05-04] VITALS (28 sets, daily range): BP systolic 116–145; BP diastolic 54–80; PULSE 63–90; RESP 18–28; TEMP 36.3–36.6; O2SAT 91–97
[2021-05-04] MEDS: IPRATROPIUM BR 0.02% INH SOLN 0.5 MG/2.5 ML VIAL INHALATION ×4 (02:18→21:17)
[2021-05-04] MEDS: ALBUTEROL SULFATE NEB 2.5 MG/0.5 ML INH INHALATION ×4 (02:18→21:17)
[2021-05-04] MEDS: FUROSEMIDE INJ 100 MG in SODIUM CHLORIDE 0.9% IV 90 ML 10 MG IV CONT (04:05)
[2021-05-04 05:29] LABS: INR 1.1; Prothrombin Time 14.4 Seconds (11.1-14.7)
[2021-05-04 05:34] LABS: Anion Gap 6 mmol/L (8-16); Blood Urea Nitrogen 40 mg/dL (9-20); Calcium 8.6 mg/dL (8.4-10.2); Carbon Dioxide 38 mmol/L (22-30); Chloride 92 mmol/L (98-107); Estimated CRCL calculation 95 ml/min; Estimated Glomerular Filt Rate > 60; Glucose 340 mg/dL (65-110); Potassium 3.8 mmol/L (3.4-5.0); Sodium 136 mmol/L (137-145)
[2021-05-04] MEDS: methylPREDNISolone SOD SUCC 40 MG VIAL 60 MG IV PUSH ×3 (05:55→21:02)
[2021-05-04 09:03] LABS: Glucose Point of Care 306 mg/dl (65-105)
[2021-05-04] MEDS: ATORVASTATIN 40 MG TABLET 80 MG PO (09:38)
[2021-05-04] MEDS: carvediloL 12.5 MG TABLET PO ×2 (09:38→21:02)
[2021-05-04] MEDS: AMIODARONE HCL 200 MG TABLET PO ×2 (09:38→16:07)
[2021-05-04] MEDS: INSULIN ASPART (*BKC) 100 UNITS/ML SUB-Q ×2 (09:39→16:08)
[2021-05-04] MEDS: SPIRONOLACTONE 25 MG TABLET PO (09:39)
[2021-05-04] MEDS: PANTOPRAZOLE 40 MG TABLET PO (09:39)
--- NOTE | 2021-05-04 10:54 | PM.IMPN ---
Progress Note: A&P Additional Plan START OF DOCTOR ALIYAS PROGRESS NOTE Subjective: The patient gets his respiratory status has improved compared to my encounter with him on May 03, 2021. He currently rates his respiratory status as a 9/10 it if 10 is baseline. He denies fever, rigors, nausea, vomiting, cough, wheeze, abdominal pain, chest pain, dyspnea on supplemental oxygen. He indicates that he has been urinating large amount explained to the patient his current medical condition plan of care and answered all his questions. Last 12 hours patient has had urine output of approximately 3 L Objective: General: -Alert -No acute distress -No dyspnea -No tachypnea -obese Heart: -Regular rate -Regular rhythm -No murmurs -No gallops -No rubs Lungs: -No wheeze -No rhonchi -No rales -trace bibasilar rales Abdomen: -Normal bowel sounds in all four quadrants -No rebound -No guarding -No tenderness Extremities: -2/4 pulse in all four extremities -No clubbing -No cyanosis -bilateral lower extremity edema to release these Additional Details / Additional Findings / Exceptions / Miscellaneous: Pertinent Laboratory Results / Pertinent Radiology Results / Pertinent Diagnostic Results / Pertinent Vital Signs: Blood pressure 145/70, respirations 20, 95% on 3 L Assessment / Plan: Dyspnea secondary to COPD exacerbation versus CHF exacerbation CHF, ejection fraction 20-25%, status post pacemaker/AICD placement. IV Lasix drip at 10 milligrams/hour plus Coreg 12.5 mg p.o. b.i.d. plus Aldactone 50 mg p.o.. Daily weight. Strict I/O. COPD, non O2 dependent. DuoNeb nebulized q.6 hours +Medrol 60 mg IV q.8 hours Obstructive sleep apnea. Patient CPAP/BiPAP intolerant Atrial fibrillation, status post AICD/pacemaker placement. Coreg 12.5 mg mg p.o. b.i.d. plus amiodarone 200 mg p.o. b.i.d. plus Coumadin 7.5 mg p.o. daily. Will check PT/INR daily. Lovenox 150 mg subcutaneously q.12 hours Coronary artery disease. Lipitor 80 mg p.o. q.h.s. plus Coreg 12.5 mg p.o. b.i.d. Smoker. Patient counseled regarding smoking cessation Hypertension. Coreg 12.5 mg p.o. b.i.d. plus Aldactone 50 mg p.o. daily plus IV Lasix drip at 10 milligrams/hour Anemia. Monitor hemoglobin low intermittently. Ferritin within normal limits. Check iron panel and fecal occult blood Obesity. Patient counseled regarding lifestyle modification Hyperglycemia, query diabetes. This may be steroid induced hyperglycemia. Will check fingerstick glucose q.a.c. and HS and provide insulin sliding scale GI prophylaxis. Protonix 40 mg p.o. daily DVT prophylaxis. Coumadin 7.5 mg p.o. daily. Will check daily PT INR. Until PT/INRs therapeutic, Lovenox 100 mg subcutaneously q.12 hours Disposition: Anticipate discharge within 48-72 hours depending on patient's rate of diuresis Subjective Date/time seen: 05/04/21 10:54 Objective Data Vital Signs Vital Signs: Vital Signs - 24 hr 05/03/21 12:00 05/03/21 14:00 05/03/21 14:22 Temperature 97.4 F L Pulse Rate 71 70 73 Respiratory Rate 26 H 20 Blood Pressure 152/75 H Pulse Oximetry 93 05/03/21 14:32 05/03/21 16:00 05/03/21 17:43 Temperature 97.5 F L Pulse Rate 75 59 L 77 Respiratory Rate 20 24 H Blood Pressure 162/75 H Pulse Oximetry 94 05/03/21 18:00 05/03/21 19:50 05/03/21 20:00 Temperature 98.2 F Pulse Rate 75 76 79 Respiratory Rate 24 H Blood Pressure 138/77 Pulse Oximetry 94 05/03/21 20:17 05/03/21 20:25 05/03/21 22:00 Temperature Pulse Rate 70 74 77 Respiratory Rate 18 20 Blood Pressure Pulse Oximetry 95 05/03/21 23:41 05/04/21 00:00 05/04/21 02:00 Temperature 98.5 F Pulse Rate 70 70 80 Respiratory Rate 24 H Blood Pressure 140/87 Pulse Oximetry 98 96 05/04/21 02:18 05/04/21 02:25 05/04/21 04:00 Temperature 97.9 F Pulse Rate 70 72 63 Respiratory Rate 18 20 24 H Blood Pressure 136/79 Puls
--- NOTE | 2021-05-04 10:58 | PM.PNCARD ---
Progress Note: A&P Assessment and Plan (1) Acute on chronic systolic CHF (congestive heart failure): Code(s): I50.23 - Acute on chronic systolic (congestive) heart failure Status: Acute Assessment and Plan: Patient presents with acute on chronic CHF, improving with diuresis. Entresto, spironolactone, and furosemide were discontinued in February because of dehydration and acute kidney injury. Explained to the patient that we will need to restart the furosemide but is renal function is good. His usual stna, Dr. Suarez, can continue to follow it as an outpatient. Will DC the Lasix drip. Start furosemide 40 mg IV q.8 hours. Okay to transfer off of IMU Daily BMP. KCL 40 mg p.o. x1 Follow up with his usual stna on discharge for long-term management of CHF and cardiomyopathy. (2) Acute hypercapnic respiratory failure: Code(s): J96.02 - Acute respiratory failure with hypercapnia Status: Acute Assessment and Plan: Acute on chronic respiratory failure secondary to CHF, COPD exacerbation, and probably a degree of chronic hypercarbia related to his morbid obesity and sleep apnea. Supported with BiPAP for the 1st couple of days this admission. Now on nasal cannula O2. (3) Ischemic cardiomyopathy: Code(s): I25.5 - Ischemic cardiomyopathy Status: Acute Assessment and Plan: History of ischemic cardiomyopathy EF 40% in October. (4) CAD (coronary artery disease): Code(s): I25.10 - Atherosclerotic heart disease of [place] coronary artery without angina pectoris Status: Acute Assessment and Plan: RCA and circumflex stents were patent by catheterization in June 2020. No angina or ischemic EKG changes. (5) Afib: Code(s): I48.91 - Unspecified atrial fibrillation Status: Acute Assessment and Plan: Unclear if persistent or paroxysmal but the patient is in AFib now. Takes amiodarone. Rate is controlled. (6) Chronic anticoagulation: Code(s): Z79.01 - buttermaker helper (current) use of anticoagulants Status: Acute Assessment and Plan: Patient is chronically anticoagulated with warfarin. He tells me his usual dose is 5 mg daily except for 6 mg on Mondays and Fridays. (I suspected is actually 7 mg on Mondays and Fridays. ) He states he is compliant with medications and has not run out of anything. INR is 1.1 today. Warfarin has been resumed. (7) ICD (implantable cardioverter-defibrillator) in place: Code(s): Z95.810 - Presence of automatic (implantable) cardiac defibrillator Status: Acute Assessment and Plan: Has an ICD in place. Followed by Dr. Suarez. (8) Asthma: Code(s): J45.909 - Unspecified asthma, uncomplicated Status: Acute (9) Tobacco use: Code(s): Z72.0 - Tobacco use Status: Acute (10) Hypertension: Code(s): I10 - Essential (primary) hypertension Status: Acute Assessment and Plan: Not at goal. (11) LESLIE (obstructive sleep apnea): Code(s): G47.33 - Obstructive sleep apnea (adult) (pediatric) Status: Acute Assessment and Plan: Intolerant of CPAP. Subjective Date/time seen: 05/04/21 10:58 Interval history: 65-year-old admitted for CHF. Date of service 05/03/2021: Continues to diurese. Legs are less swollen. He is not short of breath at rest. No chest pain. Date of service 05/04/2021: Legs are still swollen but better. No shortness of breath, chest pain, palpitations. Review of Systems Constitutional: Constitutional: Reports fatigue and Reports weakness ENT: Denies epistaxis Cardiovascular: Cardiovascular: Denies chest pain, Reports pedal edema, Reports leg edema, Denies lightheadedness, Reports dyspnea and Reports dyspnea on exertion Respiratory: Respiratory: Reports chest congestion, Report
[2021-05-04 12:24] LABS: Glucose Point of Care 420 mg/dl (65-105)
[2021-05-04] MEDS: ENOXAPARIN 30 MG/0.3 ML SYRINGE SUB-Q ×2 (12:36→21:03)
[2021-05-04] MEDS: SPIRONOLACTONE 50 MG TABLET PO (12:36)
[2021-05-04] MEDS: INSULIN ASPART (*BKC) 100 UNITS/ML 26 UNITS SUB-Q (12:36)
[2021-05-04] MEDS: POTASSIUM CHLORIDE 20 MEQ TABLET 40 MEQ PO (12:36)
[2021-05-04] MEDS: ENOXAPARIN 120 MG/0.8 ML SYRINGE SUB-Q ×2 (12:36→21:03)
[2021-05-04] MEDS: FUROSEMIDE INJ 40 MG/4 ML VIAL IV PUSH ×2 (13:53→21:03)
[2021-05-04] MEDS: WARFARIN (*PBKC) 7.5 MG TABLET PO (16:07)
[2021-05-04 16:54] LABS: Glucose Point of Care 278 mg/dl (65-105)
[2021-05-04 20:25] LABS: Glucose Point of Care 213 mg/dl (65-105)
[2021-05-05] VITALS (20 sets, daily range): BP systolic 123–143; BP diastolic 60–81; PULSE 61–95; RESP 12–24; TEMP 36.3–37.4; O2SAT 88–92
[2021-05-05] MEDS: ALBUTEROL SULFATE NEB 2.5 MG/0.5 ML INH INHALATION ×4 (01:59→19:26)
[2021-05-05] MEDS: IPRATROPIUM BR 0.02% INH SOLN 0.5 MG/2.5 ML VIAL INHALATION ×4 (01:59→19:26)
[2021-05-05 05:13] LABS: INR 1.4; Prothrombin Time 16.7 Seconds (11.1-14.7)
[2021-05-05 05:28] LABS: Blood Urea Nitrogen 39 mg/dL (9-20); Carbon Dioxide > 40 mmol/L (22-30); Chloride 92 mmol/L (98-107); Estimated CRCL calculation 95 ml/min; Estimated Glomerular Filt Rate > 60; Glucose 298 mg/dL (65-110); Potassium 3.8 mmol/L (3.4-5.0); Sodium 135 mmol/L (137-145)
[2021-05-05] MEDS: FUROSEMIDE INJ 40 MG/4 ML VIAL IV PUSH ×3 (05:28→21:01)
[2021-05-05] MEDS: methylPREDNISolone SOD SUCC 40 MG VIAL 60 MG IV PUSH (05:28)
[2021-05-05] MEDS: ATORVASTATIN 40 MG TABLET 80 MG PO (08:27)
[2021-05-05] MEDS: AMIODARONE HCL 200 MG TABLET PO ×2 (08:27→16:27)
[2021-05-05] MEDS: carvediloL 12.5 MG TABLET PO ×2 (08:27→20:56)
[2021-05-05] MEDS: PANTOPRAZOLE 40 MG TABLET PO (08:28)
[2021-05-05] MEDS: ENOXAPARIN 30 MG/0.3 ML SYRINGE SUB-Q ×2 (08:28→20:55)
[2021-05-05] MEDS: ENOXAPARIN 120 MG/0.8 ML SYRINGE SUB-Q ×2 (08:28→20:55)
[2021-05-05] MEDS: INSULIN ASPART (*BKC) 100 UNITS/ML SUB-Q ×4 (08:28→21:54)
[2021-05-05] MEDS: SPIRONOLACTONE 50 MG TABLET PO (08:28)
[2021-05-05 08:43] LABS: Glucose Point of Care 283 mg/dl (65-105)
--- NOTE | 2021-05-05 09:29 | PM.DS ---
DS: Admitting Diagnosis Discharge Date 9:31 a.m. a on May 05, 2021 Admitting Diagnosis Dyspnea secondary to COPD exacerbation versus CHF exacerbation DS: Summary Hospital Course Hospital Course: See discharge summary below Time Spent with Patient Time attestation: Total time spent providing and/or coordinating discharge services: START OF DOCTOR KRYSTIAN?S DISCHARGE SUMMARY Date of Admission: April 30, 2020 Date of Discharge: 9:30 a.m. on May 05, 2020 Primary Diagnosis: Dyspnea secondary to COPD exacerbation versus CHF exacerbation Secondary Diagnosis: CHF, ejection fraction 20-25%, status post pacemaker/AICD placement COPD, non O2 dependent Obstructive sleep apnea Atrial fibrillation, status post AICD/pacemaker placement Coronary artery Disease Smoker paragraph hypertension paragraph anemia paragraph obesity paragraph hyperglycemia, possibly steroid induced Consultations: Cardiology Disposition: The patient will be advised follow-up with Cardiology 1 week post discharge for diagnosis of CHF, ejection fraction 20-25%, status post pacemaker/AICD placement, history of atrial fibrillation, history of coronary artery disease The patient is advised follow-up with his primary care physician 5-7 days post discharge for post hospitalization evaluation Patient required check a PT/INR 3 days post discharge for diagnosis atrial fibrillation Discharge Medications: Coumadin p.o.: Per home dose and frequency DuoNeb t.i.d. p.r.n. shortness of breath/wheeze Proventil HFA: 90 mg per spray: 2 puffs q.i.d. Amiodarone 200 mg p.o. b.i.d. Lipitor 80 mg p.o. q.h.s. Coreg 12.5 mg p.o. b.i.d. Aldactone 50 mg p.o. daily Prednisone 10 mg p.o.: 4 tabs daily x3 days then 3 tabs daily x3 days then 2 tabs daily x3 days then 1 tab daily x3 days. Quantity sufficient. 0 refills Lasix 80 mg p.o. b.i.d. K-Dur or 20 mEq p.o. b.i.d. END OF DOCTOR KRYSTIAN?S DISCHARGE SUMMARY DS: Data Data Completed and Pending Labs on day of discharge: Labs from last 24 hours 05/05/21 05/05/21 05/05/21 08:17 04:44 04:44 PT 16.7 H INR 1.4 Sodium 135 L Potassium 3.8 Chloride 92 L Carbon Dioxide > 40 H Anion Gap BUN 39 H Creatinine 1.00 Estim Creat Clear Calc 95 Estimated GFR > 60 Glucose 298 H POC Capillary Glucose 283 H Calcium 8.0 L 05/04/21 05/04/21 05/04/21 19:51 16:04 11:49 PT INR Sodium Potassium Chloride Carbon Dioxide Anion Gap BUN Creatinine Estim Creat Clear Calc Estimated GFR Glucose POC Capillary Glucose 213 H 278 H 420 H Calcium Preliminary micro results at discharge 05/01/21 00:00 Blood Culture - Preliminary Blood 05/01/21 00:00 Blood Culture - Preliminary Blood Discharge Plan Discharge Consulting providers: Becca Molina Discharging Clinician: Dr. Centeno Patient Disposition: Home, Self-Care Activity: as tolerated Diet: heart healthy, low sodium, low cholesterol and low fat Discharge Instructions: The patient is advised follow-up with Cardiology 7 days post discharge renal cysts CHF, ejection fraction 20-25%, status post pacemaker/AICD placement as well as his history of atrial fibrillation as well as history of coronary artery disease The patient is advised follow-up with his primary care physician 5-7 days post discharge for post hospitalization evaluation The patient will require check PT/INR 3 days post discharge for diagnosis of atrial fibrillation Patient Instructions: Antibiotic Form, Heart Failure (DC), How to Stop Smoking (DC) Stand Alone Forms: General Discharge Information Follow-up/Referrals: Ester Centeno DO [Physician] - Discharge Medications: New spironolactone [Aldactone] 50 mg Tablet 50 mg PO DAILY Qty: 30 RF: 0 furosemide [Lasix] 80 mg tablet 80 mg PO BID Qty: 60 RF: 0 prednisone 10 mg tablet
--- NOTE | 2021-05-05 10:30 | PM.IMPN ---
Progress Note: A&P Additional Plan START OF DOCTOR ALIYAS PROGRESS NOTE Subjective: The patient has had his respiratory status continues to improve. Overnight he denies fever, rigors, nausea, vomiting, cough, wheeze, abdominal pain, chest pain, dyspnea, or any other concerns or complaints. I have explained to the patient his current medical condition plan of care and answered all his questions Objective: General: -Alert -No acute distress -No dyspnea -No tachypnea -obese Heart: -Regular rate -Regular rhythm -No murmurs -No gallops -No rubs Lungs: -No wheeze -No rhonchi -No rales -trace bibasilar rales Abdomen: -Normal bowel sounds in all four quadrants -No rebound -No guarding -No tenderness Extremities: -2/4 pulse in all four extremities -No clubbing -No cyanosis -bilateral lower extremity edema to release these Additional Details / Additional Findings / Exceptions / Miscellaneous: Pertinent Laboratory Results / Pertinent Radiology Results / Pertinent Diagnostic Results / Pertinent Vital Signs: Vital signs stable. INR 1.4 Assessment / Plan: Dyspnea secondary to COPD exacerbation versus CHF exacerbation CHF, ejection fraction 20-25%, status post pacemaker/AICD placement. Lasix 40 mg IV q.8 hours plus Coreg 12.5 mg p.o. b.i.d. plus Aldactone 50 mg p.o.. Daily weight. Strict I/O. COPD, non O2 dependent. DuoNeb nebulized q.6 hours +Medrol 40 mg IV q.8 hours Obstructive sleep apnea. Patient CPAP/BiPAP intolerant Atrial fibrillation, status post AICD/pacemaker placement. Coreg 12.5 mg mg p.o. b.i.d. plus amiodarone 200 mg p.o. b.i.d. plus Coumadin 7.5 mg p.o. daily. Will check PT/INR daily. Lovenox 150 mg subcutaneously q.12 hours Coronary artery disease. Lipitor 80 mg p.o. q.h.s. plus Coreg 12.5 mg p.o. b.i.d. Smoker. Patient counseled regarding smoking cessation Hypertension. Coreg 12.5 mg p.o. b.i.d. plus Aldactone 50 mg p.o. daily plus Lasix 40 mg IV q.8 hours Anemia. Monitor hemoglobin low intermittently. Ferritin within normal limits. Check iron panel and fecal occult blood Obesity. Patient counseled regarding lifestyle modification Hyperglycemia, query diabetes. This may be steroid induced hyperglycemia. Will check fingerstick glucose q.a.c. and HS and provide insulin sliding scale GI prophylaxis. Protonix 40 mg p.o. daily DVT prophylaxis. Coumadin 7.5 mg p.o. daily. Will check daily PT INR. Until PT/INRs therapeutic, Lovenox 100 mg subcutaneously q.12 hours Disposition: Anticipate discharge within 48-72 hours depending on patient's rate of diuresis Subjective Date/time seen: 05/05/21 10:30 Objective Data Vital Signs Vital Signs: Vital Signs - 24 hr 05/04/21 12:00 05/04/21 12:37 05/04/21 14:00 Temperature 97.4 F L Pulse Rate 70 70 63 Respiratory Rate 22 H Blood Pressure 116/54 L Pulse Oximetry 97 97 05/04/21 14:20 05/04/21 14:35 05/04/21 16:00 Temperature Pulse Rate 70 84 74 Respiratory Rate 20 20 Blood Pressure Pulse Oximetry 91 05/04/21 16:07 05/04/21 16:56 05/04/21 18:00 Temperature 97.4 F L Pulse Rate 72 64 72 Respiratory Rate 22 H Blood Pressure 138/71 Pulse Oximetry 91 05/04/21 20:00 05/04/21 21:02 05/04/21 21:19 Temperature 97.8 F Pulse Rate 75 82 79 Respiratory Rate 24 H 20 Blood Pressure 135/80 Pulse Oximetry 92 05/04/21 21:20 05/04/21 21:29 05/04/21 22:00 Temperature Pulse Rate 82 74 Respiratory Rate 18 Blood Pressure Pulse Oximetry 92 05/04/21 23:10 05/05/21 00:00 05/05/21 02:00 Temperature 97.6 F Pulse Rate 77 75 61 Respiratory Rate 24 H Blood Pressure 145/73 H Pulse Oximetry 91 92 05/05/21 02:01 05/05/21 02:10 05/05/21 03:36 Temperature Pulse Rate 74 76 Respiratory Rate 18 18 Blood Pressure Pulse Oximetry 92 05/05/21 04:00 05/05/21 06:00 05/05/21 08:00 Temperature 97.4 F L 99.4 F Pulse Rate 74 87 75 Re
--- NOTE | 2021-05-05 11:05 | PM.PNCARD ---
Progress Note: A&P Assessment and Plan (1) Acute on chronic systolic CHF (congestive heart failure): Code(s): I50.23 - Acute on chronic systolic (congestive) heart failure Status: Acute Assessment and Plan: Patient presents with acute on chronic CHF, improving with diuresis. Entresto, spironolactone, and furosemide were discontinued in February because of dehydration and acute kidney injury. Explained to the patient that we will need to restart the furosemide but is renal function is good. His usual engineer operations and maintenance, Dr. Suarez, can continue to follow it as an outpatient. Will DC the Lasix drip. Start furosemide 40 mg IV q.8 hours. Okay to transfer off of IMU. Will DC is telemetry Daily BMP. Additional dose of KCL 40 mg p.o. x1 Follow up with his usual engineer operations and maintenance on discharge for long-term management of CHF and cardiomyopathy. (2) Acute hypercapnic respiratory failure: Code(s): J96.02 - Acute respiratory failure with hypercapnia Status: Acute Assessment and Plan: Acute on chronic respiratory failure secondary to CHF, COPD exacerbation, and probably a degree of chronic hypercarbia related to his morbid obesity and sleep apnea. Supported with BiPAP for the 1st couple of days this admission. Now on nasal cannula O2. (3) Ischemic cardiomyopathy: Code(s): I25.5 - Ischemic cardiomyopathy Status: Acute Assessment and Plan: History of ischemic cardiomyopathy EF 40% in October. (4) CAD (coronary artery disease): Code(s): I25.10 - Atherosclerotic heart disease of [place] coronary artery without angina pectoris Status: Acute Assessment and Plan: RCA and circumflex stents were patent by catheterization in June 2020. No angina or ischemic EKG changes. (5) Afib: Code(s): I48.91 - Unspecified atrial fibrillation Status: Acute Assessment and Plan: Unclear if persistent or paroxysmal but the patient is in AFib now. Takes amiodarone. Rate is controlled. 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 He tells me his usual dose is 5 mg daily except for 6 mg on Mondays and Fridays. (I suspected is actually 7 mg on Mondays and Fridays. ) He states he is compliant with medications and has not run out of anything. INR is 1.4 today. Warfarin has been resumed. (7) ICD (implantable cardioverter-defibrillator) in place: Code(s): Z95.810 - Presence of automatic (implantable) cardiac defibrillator Status: Acute Assessment and Plan: Has an ICD in place. Followed by Dr. Suarez. (8) Asthma: Code(s): J45.909 - Unspecified asthma, uncomplicated Status: Acute (9) Tobacco use: Code(s): Z72.0 - Tobacco use Status: Acute (10) Hypertension: Code(s): I10 - Essential (primary) hypertension Status: Acute Assessment and Plan: Not at goal. (11) LESLIE (obstructive sleep apnea): Code(s): G47.33 - Obstructive sleep apnea (adult) (pediatric) Status: Acute Assessment and Plan: Intolerant of CPAP. Subjective Date/time seen: 05/05/21 11:05 Interval history: 65-year-old admitted for CHF. Date of service 05/03/2021: Continues to diurese. Legs are less swollen. He is not short of breath at rest. No chest pain. Date of service 05/04/2021: Legs are still swollen but better. No shortness of breath, chest pain, palpitations. Date of service 05/05/2021: Continues to diurese. Legs are less swollen. No chest pain, shortness of breath or bleeding problem Review of Systems Constitutional: Constitutional: Reports fatigue and Reports weakness ENT: Denies epistaxis Cardiovascular: Cardiovascular: Denies chest [place]
[2021-05-05] MEDS: POTASSIUM CHLORIDE 20 MEQ TABLET 40 MEQ PO (12:12)
[2021-05-05 12:24] LABS: Glucose Point of Care 385 mg/dl (65-105)
[2021-05-05] MEDS: methylPREDNISolone SOD SUCC 40 MG VIAL IV PUSH ×2 (14:06→21:01)
[2021-05-05] MEDS: WARFARIN (*PBKC) 7.5 MG TABLET PO (16:26)
--- NOTE | 2021-05-05 16:55 | PC.NURSE ---
[facility] flyer was given to patient.
--- NOTE | 2021-05-05 17:02 | PC.NURSE ---
This patient, Elder Garcia, was transferred to [[id number]] on 05/05/21 at 1702. Personal belongings sent with patient. Report given to [Moira MERA]. Appropriate documentation sent with patient.
[2021-05-05 17:29] LABS: Glucose Point of Care 346 mg/dl (65-105)
[2021-05-05 21:30] LABS: Glucose Point of Care 360 mg/dl (65-105)
[2021-05-06] VITALS (18 sets, daily range): BP systolic 133–149; BP diastolic 61–80; PULSE 56–102; RESP 16–20; TEMP 35.6–36.9; O2SAT 90–96
[2021-05-06] MEDS: ALBUTEROL SULFATE NEB 2.5 MG/0.5 ML INH INHALATION ×4 (02:21→21:09)
[2021-05-06] MEDS: IPRATROPIUM BR 0.02% INH SOLN 0.5 MG/2.5 ML VIAL INHALATION ×4 (02:21→21:09)
[2021-05-06] MEDS: FUROSEMIDE INJ 40 MG/4 ML VIAL IV PUSH ×2 (05:30→16:52)
[2021-05-06] MEDS: methylPREDNISolone SOD SUCC 40 MG VIAL IV PUSH ×3 (05:30→22:05)
[2021-05-06 06:49] LABS: INR 1.9; Prothrombin Time 21.1 Seconds (11.1-14.7)
[2021-05-06 06:55] LABS: Blood Urea Nitrogen 36 mg/dL (9-20); Calcium 8.2 mg/dL (8.4-10.2); Carbon Dioxide > 40 mmol/L (22-30); Chloride 92 mmol/L (98-107); Estimated CRCL calculation 91 ml/min; Estimated Glomerular Filt Rate > 60; Glucose 321 mg/dL (65-110); Potassium 3.7 mmol/L (3.4-5.0); Sodium 136 mmol/L (137-145)
--- NOTE | 2021-05-06 06:59 | PM.IMPN ---
Progress Note: A&P Additional Plan START OF DOCTOR KRYSTIAN?S PROGRESS NOTE Subjective: The patient states that he had the transient episode of dyspnea overnight. Aside from this he endorses no complaints. He denies fever, rigors, nausea, vomiting, cough, wheeze, abdominal pain, chest pain. The present time he denies dyspnea. I have explained to the patient his current medical condition plan of care have answered all of his questions Objective: General: -Alert -No acute distress -No dyspnea -No tachypnea -obese Heart: -Regular rate -Regular rhythm -No murmurs -No gallops -No rubs Lungs: -No wheeze -No rhonchi -No rales -trace bibasilar rales Abdomen: -Normal bowel sounds in all four quadrants -No rebound -No guarding -No tenderness Extremities: -2/4 pulse in all four extremities -No clubbing -No cyanosis -bilateral lower extremity edema improved compared with my examination on May 05, 2021 Additional Details / Additional Findings / Exceptions / Miscellaneous: Pertinent Laboratory Results / Pertinent Radiology Results / Pertinent Diagnostic Results / Pertinent Vital Signs: Vital signs stable Assessment / Plan: Dyspnea secondary to COPD exacerbation versus CHF exacerbation CHF, ejection fraction 20-25%, status post pacemaker/AICD placement. Lasix 40 mg IV q.8 hours plus Coreg 12.5 mg p.o. b.i.d. plus Aldactone 50 mg p.o.. Daily weight. Strict I/O. COPD, non O2 dependent. DuoNeb nebulized q.6 hours +Medrol 40 mg IV q.8 hours Obstructive sleep apnea. Patient CPAP/BiPAP intolerant Atrial fibrillation, status post AICD/pacemaker placement. Coreg 12.5 mg mg p.o. b.i.d. plus amiodarone 200 mg p.o. b.i.d. plus Coumadin 7.5 mg p.o. daily. Will check PT/INR daily. Lovenox 150 mg subcutaneously q.12 hours Coronary artery disease. Lipitor 80 mg p.o. q.h.s. plus Coreg 12.5 mg p.o. b.i.d. Smoker. Patient counseled regarding smoking cessation Hypertension. Coreg 12.5 mg p.o. b.i.d. plus Aldactone 50 mg p.o. daily plus Lasix 40 mg IV q.8 hours Anemia. Monitor hemoglobin low intermittently. Ferritin within normal limits. Check iron panel and fecal occult blood Obesity. Patient counseled regarding lifestyle modification Hyperglycemia, query diabetes. This may be steroid induced hyperglycemia. Will check fingerstick glucose q.a.c. and HS and provide insulin sliding scale GI prophylaxis. Protonix 40 mg p.o. daily DVT prophylaxis. Coumadin 7.5 mg p.o. daily. Will check daily PT INR. Until PT/INRs therapeutic, Lovenox 100 mg subcutaneously q.12 hours Disposition: Anticipate discharge once diuresis goals are met, possibly 24 hours Subjective Date/time seen: 05/06/21 06:59 Objective Data Vital Signs Vital Signs: Vital Signs - 24 hr 05/05/21 08:00 05/05/21 08:27 05/05/21 09:08 Temperature 99.4 F Pulse Rate 75 82 94 Respiratory Rate 18 18 Blood Pressure 128/81 Pulse Oximetry 88 L 05/05/21 09:16 05/05/21 10:00 05/05/21 12:00 Temperature 99.1 F Pulse Rate 87 95 71 Respiratory Rate 18 12 Blood Pressure 123/60 Pulse Oximetry 90 05/05/21 14:12 05/05/21 14:21 05/05/21 16:00 Temperature 99.4 F Pulse Rate 92 89 73 Respiratory Rate 18 18 12 Blood Pressure 143/70 H Pulse Oximetry 90 05/05/21 16:27 05/05/21 19:30 05/05/21 19:49 Temperature Pulse Rate 74 87 84 Respiratory Rate 18 18 Blood Pressure Pulse Oximetry 92 92 05/05/21 20:56 05/06/21 00:00 05/06/21 02:20 Temperature 96.1 F L Pulse Rate 84 65 84 Respiratory Rate 18 18 Blood Pressure 137/78 Pulse Oximetry 95 05/06/21 02:28 Temperature Pulse Rate 86 Respiratory Rate 18 Blood Pressure Pulse Oximetry Intake/Output Intake/Output: Intake & Output 05/03/21 05/04/21 05/05/21 05/06/21 23:59 23:59 23:59 23:59 Intake Total 2465 1680 1650 1000 Output Total 5800 4000 4300 1500 Balance -3335 -2320 -2650 -500 Meds/Results Medications:
[2021-05-06 07:24] LABS: Glucose Point of Care 334 mg/dl (65-105)
[2021-05-06] MEDS: SPIRONOLACTONE 50 MG TABLET PO (08:25)
[2021-05-06] MEDS: ENOXAPARIN 30 MG/0.3 ML SYRINGE SUB-Q ×2 (08:25→20:25)
[2021-05-06] MEDS: AMIODARONE HCL 200 MG TABLET PO ×2 (08:25→16:52)
[2021-05-06] MEDS: carvediloL 12.5 MG TABLET PO ×2 (08:27→20:25)
[2021-05-06] MEDS: ATORVASTATIN 40 MG TABLET 80 MG PO (08:27)
[2021-05-06] MEDS: PANTOPRAZOLE 40 MG TABLET PO (08:27)
[2021-05-06] MEDS: ENOXAPARIN 120 MG/0.8 ML SYRINGE SUB-Q ×2 (08:28→20:24)
[2021-05-06] MEDS: INSULIN ASPART (*BKC) 100 UNITS/ML SUB-Q ×3 (08:29→16:50)
--- NOTE | 2021-05-06 10:17 | PM.PNCARD ---
Progress Note: A&P Assessment and Plan (1) Acute on chronic systolic CHF (congestive heart failure): Code(s): I50.23 - Acute on chronic systolic (congestive) heart failure Status: Acute Assessment and Plan: Patient presents with acute on chronic CHF, improving with diuresis. Entresto, spironolactone, and furosemide were discontinued in February because of dehydration and acute kidney injury. Explained to the patient that we will need to restart the furosemide but is renal function is good. His usual selling specialist, Dr. Suarez, can continue to follow it as an outpatient. Continue furosemide 40 mg IV q.8 hours. Perhaps shift him to oral diuretics tomorrow. Daily BMP. Follow up with his usual selling specialist on discharge for long-term management of CHF and cardiomyopathy. (2) Acute hypercapnic respiratory failure: Code(s): J96.02 - Acute respiratory failure with hypercapnia Status: Acute Assessment and Plan: Acute on chronic respiratory failure secondary to CHF, COPD exacerbation, and probably a degree of chronic hypercarbia related to his morbid obesity and sleep apnea. Supported with BiPAP for the 1st couple of days this admission. On room air now. (3) Ischemic cardiomyopathy: Code(s): I25.5 - Ischemic cardiomyopathy Status: Acute Assessment and Plan: History of ischemic cardiomyopathy EF 40% in October. (4) CAD (coronary artery disease): Code(s): I25.10 - Atherosclerotic heart disease of [place] coronary artery without angina pectoris Status: Acute Assessment and Plan: RCA and circumflex stents were patent by catheterization in June 2020. No angina or ischemic EKG changes. (5) Afib: Code(s): I48.91 - Unspecified atrial fibrillation Status: Acute Assessment and Plan: Unclear if persistent or paroxysmal but the patient is in AFib now. Takes amiodarone. Rate is controlled. 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 He tells me his usual dose is 5 mg daily except for 6 mg on Mondays and Fridays. (I suspected is actually 7 mg on Mondays and Fridays. ) He states he is compliant with medications and has not run out of anything. INR is 1.9 today. (7) ICD (implantable cardioverter-defibrillator) in place: Code(s): Z95.810 - Presence of automatic (implantable) cardiac defibrillator Status: Acute Assessment and Plan: Has an ICD in place. Followed by Dr. Suarez. (8) Asthma: Code(s): J45.909 - Unspecified asthma, uncomplicated Status: Acute (9) Tobacco use: Code(s): Z72.0 - Tobacco use Status: Acute (10) Hypertension: Code(s): I10 - Essential (primary) hypertension Status: Acute Assessment and Plan: Reasonably controlled at this point. (11) LESLIE (obstructive sleep apnea): Code(s): G47.33 - Obstructive sleep apnea (adult) (pediatric) Status: Acute Assessment and Plan: Intolerant of CPAP. Subjective Date/time seen: 05/06/21 10:17 Interval history: 65-year-old admitted for CHF. Date of service 05/03/2021: Continues to diurese. Legs are less swollen. He is not short of breath at rest. No chest pain. Date of service 05/04/2021: Legs are still swollen but better. No shortness of breath, chest pain, palpitations. Date of service 05/05/2021: Continues to diurese. Legs are less swollen. No chest pain, shortness of breath or bleeding problem Date of service 05/06/2021: Feeling okay today. Lower extremity swelling continues to improve. Review of Systems Constitutional: Constitutional: Reports fatigue and Reports weakness ENT: Denies epistaxis Cardiovascular: Cardiovascular:
[2021-05-06 11:24] LABS: Glucose Point of Care 342 mg/dl (65-105)
[2021-05-06 16:51] LABS: Glucose Point of Care 366 mg/dl (65-105)
[2021-05-06] MEDS: WARFARIN (*PBKC) 7.5 MG TABLET PO (16:52)
[2021-05-06 20:43] LABS: Glucose Point of Care 407 mg/dl (65-105)
[2021-05-06] MEDS: INSULIN ASPART (*BKC) 100 UNITS/ML 8 UNITS SUB-Q (22:03)
[2021-05-07] VITALS (10 sets, daily range): BP systolic 146–148; BP diastolic 78–79; PULSE 63–78; RESP 18–20; TEMP 36–36.7; O2SAT 91–97
[2021-05-07] MEDS: ALBUTEROL SULFATE NEB 2.5 MG/0.5 ML INH INHALATION ×2 (01:00→08:18)
[2021-05-07] MEDS: IPRATROPIUM BR 0.02% INH SOLN 0.5 MG/2.5 ML VIAL INHALATION ×2 (01:00→08:18)
[2021-05-07] MEDS: methylPREDNISolone SOD SUCC 40 MG VIAL IV PUSH (06:37)
--- NOTE | 2021-05-07 06:57 | PM.IMPN ---
Progress Note: A&P Additional Plan START OF DOCTOR KRYSTIAN?S PROGRESS NOTE Subjective: The patient indicates that he had an episode of dyspnea overnight which necessitated him being placed on BiPAP. Aside from this endorses no complaints. At the present time he denies fever, rigors, nausea, vomiting, cough, wheeze, abdominal pain, chest pain, dyspnea, lightheadedness, dizziness, diaphoresis, palpitations, substance rapid heartbeat, sensation irregular P. I have explained to the patient his current medical condition plan of care and answered all his questions Objective: General: -Alert -No acute distress -No dyspnea -No tachypnea -obese Heart: -Regular rate -Regular rhythm -No murmurs -No gallops -No rubs Lungs: -No wheeze -No rhonchi -No rales -trace bibasilar rales Abdomen: -Normal bowel sounds in all four quadrants -No rebound -No guarding -No tenderness Extremities: -2/4 pulse in all four extremities -No clubbing -No cyanosis -bilateral lower extremity edema present however continued to improve each day Additional Details / Additional Findings / Exceptions / Miscellaneous: Pertinent Laboratory Results / Pertinent Radiology Results / Pertinent Diagnostic Results / Pertinent Vital Signs: Blood pressure 140/79, pulse 67 Assessment / Plan: Dyspnea secondary to COPD exacerbation versus CHF exacerbation CHF, ejection fraction 20-25%, status post pacemaker/AICD placement. Lasix 40 mg IV Q 12 hours plus Coreg 12.5 mg p.o. b.i.d. plus Aldactone 100 mg p.o.. Daily weight. Strict I/O. COPD, non O2 dependent. DuoNeb nebulized q.6 hours +Medrol 40 mg IV q.8 hours Obstructive sleep apnea. Patient CPAP/BiPAP intolerant Atrial fibrillation, status post AICD/pacemaker placement. Coreg 12.5 mg mg p.o. b.i.d. plus amiodarone 200 mg p.o. b.i.d. plus Coumadin 7.5 mg p.o. daily. Will check PT/INR daily. Lovenox 150 mg subcutaneously q.12 hours Coronary artery disease. Lipitor 80 mg p.o. q.h.s. plus Coreg 12.5 mg p.o. b.i.d. Smoker. Patient counseled regarding smoking cessation Hypertension. Coreg 12.5 mg p.o. b.i.d. plus Aldactone 100 mg p.o. daily plus Lasix 40 mg IV q.12 hours Iron deficiency Anemia. Monitor hemoglobin low intermittently. Ferritin within normal limits. Ferrous sulfate 325 mg p.o. b.i.d. plus vitamin-C 500 mg p.o. daily Obesity. Patient counseled regarding lifestyle modification Hyperglycemia, query diabetes. This may be steroid induced hyperglycemia. Will check fingerstick glucose q.a.c. and HS and provide insulin sliding scale GI prophylaxis. Protonix 40 mg p.o. daily DVT prophylaxis. Coumadin 7.5 mg p.o. daily. Will check daily PT INR. Until PT/INRs therapeutic, Lovenox 100 mg subcutaneously q.12 hours Disposition: Likely discharge on this day of May 07, 2021 pending results of BMP and PT/INR Subjective Date/time seen: 05/07/21 06:57 Objective Data Vital Signs Vital Signs: Vital Signs - 24 hr 05/06/21 08:00 05/06/21 08:25 05/06/21 08:27 Temperature Pulse Rate 80 102 H 102 H Respiratory Rate 18 Blood Pressure Pulse Oximetry 91 05/06/21 09:20 05/06/21 09:33 05/06/21 13:43 Temperature Pulse Rate 82 80 74 Respiratory Rate 18 18 18 Blood Pressure Pulse Oximetry 91 05/06/21 13:51 05/06/21 14:43 05/06/21 16:52 Temperature 97.2 F L Pulse Rate 76 74 98 Respiratory Rate 18 18 Blood Pressure 133/80 Pulse Oximetry 92 05/06/21 20:20 05/06/21 20:25 05/06/21 21:13 Temperature Pulse Rate 82 76 56 L Respiratory Rate 20 18 Blood Pressure Pulse Oximetry 96 05/06/21 21:15 05/06/21 21:21 05/06/21 22:00 Temperature 98.5 F Pulse Rate 72 82 Respiratory Rate 16 20 Blood Pressure 149/61 H Pulse Oximetry 90 96 05/07/21 01:02 05/07/21 01:08 05/07/21 02:11 Temperature Pulse Rate 65 72 63 Respiratory Rate 20 18 20 Blood Pressure Pulse Oximetry 95 05/07/21 06:00 Temperatu
[2021-05-07 07:03] LABS: INR 2.2
[2021-05-07 07:16] LABS: Blood Urea Nitrogen 37 mg/dL (9-20); Calcium 8.4 mg/dL (8.4-10.2); Carbon Dioxide > 40 mmol/L (22-30); Chloride 94 mmol/L (98-107); Estimated CRCL calculation 112 ml/min; Estimated Glomerular Filt Rate > 60; Glucose 294 mg/dL (65-110); Potassium 4.1 mmol/L (3.4-5.0); Sodium 136 mmol/L (137-145)
--- NOTE | 2021-05-07 07:44 | ECG_ITS ---
Measurements Intervals [place] Rate: 74 P: [place]: 0 QRS: -34 QRSD: 117 T: 0 QT: 348 QTc: 386 Interpretive Statements ATRIAL FLUTTER/TACHYCARDIA LOW QRS VOLTAGE IN PRECORDIAL LEADS ANTEROSEPTAL INFARCT, AGE INDETERMINATE BORDERLINE T WAVE ABNORMALITY- INF/HIGH LAT LEADS ABNORMAL ECG Electronically Signed On 05-07-2021 8:21:39 CDT by Aditya Milton D.O.
[2021-05-07 08:04] LABS: Glucose Point of Care 267 mg/dl (65-105)
[2021-05-07] MEDS: SPIRONOLACTONE 50 MG TABLET 100 MG PO (08:33)
[2021-05-07] MEDS: INSULIN ASPART (*BKC) 100 UNITS/ML SUB-Q (08:33)
[2021-05-07] MEDS: FUROSEMIDE INJ 40 MG/4 ML VIAL IV PUSH (08:34)
[2021-05-07] MEDS: FERROUS SULFATE 324 MG TABLET PO (08:35)
[2021-05-07] MEDS: carvediloL 12.5 MG TABLET PO (08:35)
[2021-05-07] MEDS: ASCORBIC ACID 500 MG TABLET PO (08:35)
[2021-05-07] MEDS: AMIODARONE HCL 200 MG TABLET PO (08:36)
[2021-05-07] MEDS: ATORVASTATIN 40 MG TABLET 80 MG PO (08:36)
[2021-05-07] MEDS: PANTOPRAZOLE 40 MG TABLET PO (08:38)
--- NOTE | 2021-05-07 09:33 | PM.PNCARD ---
Progress Note: A&P Assessment and Plan (1) Acute on chronic systolic CHF (congestive heart failure): Code(s): I50.23 - Acute on chronic systolic (congestive) heart failure Status: Acute Assessment and Plan: Patient presents with acute on chronic CHF, improving with diuresis. Entresto, spironolactone, and furosemide were discontinued in February because of dehydration and acute kidney injury. Explained to the patient that we will need to restart the furosemide but is renal function is good. His usual engineer exhauster, Dr. Suarez, can continue to follow it as an outpatient. Will DC IV furosemide and switch him to furosemide 40 mg p.o. b.i.d.. Further adjustments can be made as an outpatient Follow up with his usual engineer exhauster on discharge for long-term management of CHF and cardiomyopathy. (2) Acute hypercapnic respiratory failure: Code(s): J96.02 - Acute respiratory failure with hypercapnia Status: Acute Assessment and Plan: Acute on chronic respiratory failure secondary to CHF, COPD exacerbation, and probably a degree of chronic hypercarbia related to his morbid obesity and sleep apnea. Supported with BiPAP for the 1st couple of days this admission. On room air now. (3) Ischemic cardiomyopathy: Code(s): I25.5 - Ischemic cardiomyopathy Status: Acute Assessment and Plan: History of ischemic cardiomyopathy EF 40% in October. (4) CAD (coronary artery disease): Code(s): I25.10 - Atherosclerotic heart disease of [place] coronary artery without angina pectoris Status: Acute Assessment and Plan: RCA and circumflex stents were patent by catheterization in June 2020. No angina or ischemic EKG changes. (5) Afib: Code(s): I48.91 - Unspecified atrial fibrillation Status: Acute Assessment and Plan: Unclear if persistent or paroxysmal but the patient is in AFib now. Takes amiodarone. Rate is controlled. 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 Discontinue enoxaparin today as his INR is therapeutic (7) ICD (implantable cardioverter-defibrillator) in place: Code(s): Z95.810 - Presence of automatic (implantable) cardiac defibrillator Status: Acute Assessment and Plan: Has an ICD in place. Followed by Dr. Suarez. (8) Asthma: Code(s): J45.909 - Unspecified asthma, uncomplicated Status: Acute (9) Tobacco use: Code(s): Z72.0 - Tobacco use Status: Acute (10) Hypertension: Code(s): I10 - Essential (primary) hypertension Status: Acute Assessment and Plan: Reasonably controlled at this point. (11) LESLIE (obstructive sleep apnea): Code(s): G47.33 - Obstructive sleep apnea (adult) (pediatric) Status: Acute Assessment and Plan: Intolerant of CPAP. Subjective Date/time seen: 05/07/21 09:33 Interval history: 65-year-old admitted for CHF. Date of service 05/03/2021: Continues to diurese. Legs are less swollen. He is not short of breath at rest. No chest pain. Date of service 05/04/2021: Legs are still swollen but better. No shortness of breath, chest pain, palpitations. Date of service 05/05/2021: Continues to diurese. Legs are less swollen. No chest pain, shortness of breath or bleeding problem Date of service 05/06/2021: Feeling okay today. Lower extremity swelling continues to improve. Date of service 05/07/2021: Improving swelling. No shortness of breath. Review of Systems Constitutional: Constitutional: Reports fatigue and Reports weakness ENT: Denies epistaxis Cardiovascular: Cardiovascular: Denies chest pain, Reports pedal edema, Reports leg edema, Denies lightheadedness, Reports dyspnea and Reports dysp
--- NOTE | 2021-05-07 10:17 | PM.DS ---
DS: Admitting Diagnosis Discharge Date 10:19 a.m. on May 07, 2021 Admitting Diagnosis Dyspnea secondary to COPD exacerbation versus CHF exacerbation DS: Summary Hospital Course Hospital Course: See discharge summary Time Spent with Patient Time attestation: Total time spent providing and/or coordinating discharge services: START OF DOCTOR KRYSTIAN?S DISCHARGE SUMMARY Date of Admission: April 30, 2021 Date of Discharge: 10:17 a.m. on May 07, 2021 Primary Diagnosis: Dyspnea secondary to COPD COPD exacerbation versus CHF exacerbation Secondary Diagnosis: CHF, ejection fraction 20 25%, status post pacemaker/AICD placement COPD, non O2 dependent Obstructive sleep apnea Atrial fibrillation, status post AICD/pacemaker placement Coronary artery disease Smoker Hypertension Iron deficiency anemia Obesity Hyperglycemia, likely secondary to steroids Consultations: Cardiology Disposition: The patient would be a advised follow-up with Cardiology 7 days post discharge or as directed The patient is advised follow-up with his primary care physician 5-7 days post discharge for post hospitalization evaluation Patient require check a PT/INR 3 days post discharge for diagnosis of atrial fibrillation Discharge Medications: Albuterol 2.5 mg nebulized t.i.d. p.r.n. shortness of breath/wheeze Amiodarone 200 mg p.o. b.i.d. Lipitor 80 mg p.o. q.h.s. Aldactone 100 mg p.o. daily Vitamin-C 500 mg p.o. daily Coreg 12.5 mg p.o. b.i.d. K-Dur 20 mEq p.o. b.i.d. Lasix 80 mg p.o. b.i.d. Proventil HFA: 90 mg per spray: 2 puffs q.i.d. Ferrous sulfate 325 mg p.o. b.i.d. Prednisone 10 mg p.o.: 4 tabs daily x3 days then 3 tabs daily 100 x 3 days then 2 tabs daily x3 days then 1 tab daily x3 days. Quantity sufficient. 0 refills Protonix 40 mg p.o. daily. Quantity 15. 0 refills. This is being prescribed for GI prophylaxis while the patient is on prednisone and is not for dyspepsia/GERD Coumadin 5 mg p.o. daily. Quantity 10. 0 refills END OF DOCTOR KRYSTIAN?S DISCHARGE SUMMARY DS: Data Data Completed and Pending Labs on day of discharge: Labs from last 24 hours 05/07/21 05/07/21 05/07/21 08:01 06:07 06:07 PT 24.0 H INR 2.2 Sodium 136 L Potassium 4.1 Chloride 94 L Carbon Dioxide > 40 H Anion Gap BUN 37 H Creatinine 0.80 Estim Creat Clear Calc 112 Estimated GFR > 60 Glucose 294 H POC Capillary Glucose 267 H Calcium 8.4 05/06/21 05/06/21 05/06/21 20:35 16:49 11:21 PT INR Sodium Potassium Chloride Carbon Dioxide Anion Gap BUN Creatinine Estim Creat Clear Calc Estimated GFR Glucose POC Capillary Glucose 407 H 366 H 342 H Calcium Discharge Plan Discharge Consulting providers: Becca Molina Discharging Clinician: Dr. Centeno Patient Disposition: Home, Self-Care Activity: as tolerated Diet: heart healthy, low sodium, low cholesterol and low fat Discharge Instructions: The patient is advised follow-up with Cardiology 7 days post discharge renal cysts CHF, ejection fraction 20-25%, status post pacemaker/AICD placement as well as his history of atrial fibrillation as well as history of coronary artery disease The patient is advised follow-up with his primary care physician 5-7 days post discharge for post hospitalization evaluation The patient will require check PT/INR 3 days post discharge for diagnosis of atrial fibrillation Patient Instructions: Antibiotic Form, Heart Failure (DC), How to Stop Smoking (DC) Stand Alone Forms: General Discharge Information Follow-up/Referrals: Ester Centeno DO [Physician] - Discharge Medications: New furosemide [Lasix] 80 mg tablet 80 mg PO BID Qty: 60 RF: 0 prednisone 10 mg tablet 10 mg PO DAILY Qty: 1 RF: 0 spironolactone [Aldactone] 50 mg Tablet 100 mg PO DAILY Qt
--- NOTE | 2021-05-07 11:02 | PCNWS ---
Weekly nutritional screen. Patient is tolerating current diet with adequate intake. No weight loss reported. No nutritional needs at this time.
[2021-05-07 12:05] LABS: Glucose Point of Care 409 mg/dl (65-105)
[2021-05-07] MEDS: INSULIN ASPART (*BKC) 100 UNITS/ML 18 UNITS SUB-Q (12:28)
== END 2021-05-07 13:04 | disposition home or self-care (01) | DRG 291 ==
LOC: ANHED 05-01 00:23 → ANHIMU 05-01 22:45 → ANH3MEDSUR 05-07 08:23 → ANHIMU 05-12 10:46
PROVIDERS: Internal Medicine Critical Care Medicine; Admitting Provider Internal Medicine; Emergency Provider Emergency Medicine; PCP Internal Medicine Gastroenterology; Visit Provider Internal Medicine
DX: I11.0 Hypertensive heart disease with heart failure (principal); I50.23 Acute on chronic systolic (congestive) heart failure; J96.22 Acute and chronic respiratory failure with hypercapnia; J44.1 Chronic obstructive pulmonary disease with (acute) exacerbation; Z68.42 Body mass index [BMI] 45.0-49.9, adult; E66.01 Morbid (severe) obesity due to excess calories; R91.8 Other nonspecific abnormal finding of lung field; I48.91 Unspecified atrial fibrillation; Z20.822 Contact with and (suspected) exposure to COVID-19; I27.22 Pulmonary hypertension due to left heart disease; G47.33 Obstructive sleep apnea (adult) (pediatric); I25.10 Atherosclerotic heart disease of native coronary artery without angina pectoris; D64.9 Anemia, unspecified; R73.9 Hyperglycemia, unspecified; Z79.01 Long term (current) use of anticoagulants; T38.0X5A Adverse effect of glucocorticoids and synthetic analogues, initial encounter; Y92.230 Patient room in hospital as the place of occurrence of the external cause; I25.5 Ischemic cardiomyopathy; Z95.5 Presence of coronary angioplasty implant and graft; Z95.810 Presence of automatic (implantable) cardiac defibrillator; Z72.0 Tobacco use
CPT/HCPCS: 36415; 36600; 71045; 71046; 80048; 80053; 80307; 82375; 82728; 82805; 82948; 83036; 83050; 83540; 83550; 83615; 83735; 83880; 84145; 84439; 84443; 84480; 84484; 85025; 85610; 87040; 93005; 94003; 94640; 96365; 96375; 99285; A9270; C8929; C9803; J0456; J0696; J1100; J1650; J1815; J1940; J2060; J2920; J2930; J7120; Q9957; U0003; U0005